=== PATIENT | female | born 1940 | race African-American/Black ===

== ENCOUNTER 2016-11-29 23:40 | Inpatient (IN) | payer OTHER ==
--- NOTE | ~2016-11-29 | OP ---
Record Of Operation [facility] [id number] [address] NAME: HUMERA GARCÍA : 40 STATUS : ADM IN [facility]#: [id number] AGE: 76 ADM/REG DATE : 11/30/16 MR#: [id number] REPORT SERV DATE: 12/04/16 DICTATED BY: EDELMIRA YUNG DATE: 12/04/16 REPORT STATUS : Draft TRANSCRIBED BY: MODL DATE: 12/04/16 DATE OF PROCEDURE: 12/04/2016 PREOPERATIVE DIAGNOSIS: History of melena. PROCEDURE: Panendoscopy. POSTOPERATIVE DIAGNOSIS: Normal panendoscopy. PREMEDICATION: Diprivan. PROCEDURE IN DETAIL: The scope was inserted without difficulty. The esophagus, stomach, duodenal bulb, and descending duodenum appeared normal. The ampulla was not seen, but there was bile in the area. Retroflexed view of the GE junction showed no other lesions. There was no evidence of active bleeding or old blood present. IMPRESSION: Normal panendoscopy. HARSHAD/PATITO Edelmira Yung M.D. / [id number] CC: MD Jose Choudhary M.D.
--- NOTE | ~2016-11-29 | DS ---
Discharge Summary [place] [id number] [facility] [place]. [address] NAME: HUMERA GARCÍA : 40 STATUS : DIS IN PAT#: [id number] AGE: 76 ADM/REG DATE : 11/30/16 MR#: [id number] REPORT SERV DATE: 12/11/16 DICTATED BY: QAMAR BERKOWITZ DATE: 12/10/16 REPORT STATUS : Draft TRANSCRIBED BY: MODL DATE: 12/10/16 ADMISSION DATE: 11/30/2016 DISCHARGE DATE: 12/10/2016 This dictation is an addition to discharge summary dictated by Dr. Baumann on 12/09/2016. The patient initially scheduled to be discharged on 12/08/2016, however, for some reason, the patient was not being able to discharge. The patient is hemodynamically stable as of today, 12/10/2016 and will be discharged home with home health. All other information remains the same. Of note, this dictation is an addition to work #[id number]. Greater than 30 minutes was spent on planning discharge and coordinating discharge, discussion with Case Management and nurse, chart review, medication reconciliation, writing of prescription. SHAMEKA/PATITO Qamar Berkowitz MD / [id number] CC: MD Jose Oneal M.D.
--- NOTE | ~2016-11-29 | IDS ---
Interim Discharge Summary [facility] [address] [place]. [address] NAME: HUMERA GARCÍA : 40 STATUS : ADM IN PAT#: [id number] AGE: 76 ADM/REG DATE : 11/30/16 MR#: [id number] REPORT SERV DATE: 12/01/16 DICTATED BY: SLIM VASQUEZ IV DATE: 12/01/16 REPORT STATUS : Draft TRANSCRIBED BY: PATITO DATE: 12/01/16 ADMISSION DATE: 11/30/2016 DISCHARGE DATE: DATE OF TRANSFER TO THE FLOOR: 12/01/2016. ADMITTING DIAGNOSES: 1. Gastrointestinal bleed, source still not clear, with no scope performed at this time. 2. History of deep vein thrombosis with reported recent clot though ultrasound of the lower extremities on 10/12/2016 reported as negative. 3. Paroxysmal atrial fibrillation. 4. Rheumatoid arthritis. 5. Hypertension. 6. Reflux disease. 7. Electrolyte abnormalities, being corrected. CONSULTANTS: Edward Marcial M.D., of GI who saw the patient on 11/30/2016, has not seen the patient yet today, with no scheduled scope at this time. PROCEDURES: The patient has had no procedure yet, has received 3 units of FFP for an elevated INR and 3 units of packed red blood cells with hemoglobin and hematocrit stable, hemoglobin now at 7.8. CURRENT MEDICATIONS: The patient is on Neurontin 600 mg twice a day, Plaquenil 200 mg twice a day, Protonix drip, Solu-Cortef 50 mg q.8 hours, and Lipitor 10 mg daily. HOSPITAL COURSE: The patient was admitted to the ICU on the early childhood education instructor of 11/30/[address] Marcial was consulted who had seen the patient in the past and scoped finding peptic ulcer disease. No scope time has yet been scheduled. The patient was supratherapeutic on her INR, Coumadin has been held, and the patient had correction with 3 units of FFP making me question the initial value. She reportedly had Coumadin started a week ago for recurrent DVT. However, in the system, ultrasounds of her lower extremities on the 11/12/2016 were negative for clot. I will clarify Dr. Jose Barnes the reason for re- initiation. I called him today; however, I just got his voicemail, so I left a message for him to call the hospital. She was placed on stress-dose steroids with outpatient use of prednisone, and I have began to taper the dose today as she has been hemodynamically stable. She had some electrolyte abnormalities which are being corrected. It was felt she was stable for transfer to the floor. We asked the Hospital Service to assume primary care. We will notify Dr. Marcial of the transfer. ANDERSON/PATITO Slim Vasquez IV, M.D. Interim Discharge Summary [address] [address] NAME: HUMERA GARCÍA : 40 STATUS : ADM IN PAT#: [id number] AGE: 76 ADM/REG DATE : 11/30/16 MR#: [id number] REPORT SERV DATE: 12/01/16 DICTATED BY: SLIM VASQUEZ IV DATE: 12/01/16 REPORT STATUS : Draft TRANSCRIBED BY: PATITO DATE: 12/01/16 / [id number]
--- NOTE | ~2016-11-29 | HP ---
History And Physical [place] [address] [place]. [address] NAME: HUMERA GARCÍA : 40 STATUS : ADM IN [facility]#: [id number] AGE: 76 ADM/REG DATE : 11/30/16 MR#: [id number] REPORT SERV DATE: 11/30/16 DICTATED BY: BÁRBARA DELONG DATE: 11/30/16 REPORT STATUS : Draft TRANSCRIBED BY: MODWen DATE: 11/30/16 DATE OF ADMISSION: 11/30/2016 HISTORY OF PRESENT ILLNESS: This is a 76-year-old patient I was asked to admit from the ER after she presented there with two to three days of dark stools associated with weakness, but no syncope. The patient also has been complaining of some epigastric pain. It appears that the patient has had previous history of DVT in 2010, and she was placed on Coumadin then and actually did have a GI bleed at that time and was seen by Dr. Marcial. For a time, she was taken off Coumadin and then was found to have recurrent DVTs in the lower extremities less than two weeks ago and was started back on Coumadin again and now comes in and with an upper GI bleed. The patient has had no fevers, diarrhea, productive cough at home. ALLERGIES: SHE IS ALLERGIC TO CODEINE, SULFAMETHOXAZOLE, TRIMETHOPRIM. MEDICATIONS: Her medications at home are aspirin 162 mg daily, Lipitor 10 mg daily, Cardizem 120 mg p.o. daily, gabapentin 600 mg twice a day, Plaquenil 200 mg once a day, Klor-Con 20 mEq twice a day, Deltasone 5 mg once a day, trazodone 100 mg at bedtime, Coumadin 5 mg daily. PAST MEDICAL HISTORY: Significant for rheumatoid arthritis, atrial fibrillation, paroxysmal atrial fibrillation, avascular necrosis of the right hip, right hip arthroplasty in 2001, gastroesophageal reflux disease, lupus, systemic sclerosis, DVT in 2010, peptic ulcer disease, acute blood loss anemia, hypertension, status post hysterectomy, pericarditis, C- section x3, back surgery, temporal artery biopsy, E. coli bacteremia. She has had a colonoscopy that shows multiple diverticuli. SOCIAL HISTORY: She is a retired nurse. She has five children. She is . Does not smoke or drink. FAMILY HISTORY: Significant for hypertension, rheumatoid arthritis in her mother. She has a son and a grandson with blood clots. REVIEW OF SYSTEMS: A 12-point review of systems was done and is as per history of present illness. PHYSICAL EXAMINATION: VITAL SIGNS: Her blood pressure is 109/54, heart rate is 103 sinus tach, temperature 99.2, respiratory rate 24, room air sat 97%. GENERAL: The patient is alert and awake, in no apparent distress. SKIN: Warm and dry. HEENT: Head is atraumatic and normocephalic. Pupils are equal, round, and reactive to light and accommodation. Extraocular eye movements are intact. Sclerae anicteric. Conjunctivae pale. Nasal mucosa is within normal limits. Oral mucosa is moist. Tongue is midline. NECK: Supple without JVD, lymphadenopathy, or thyromegaly. LUNGS: Diminished at the bases without any wheezing. History And Physical [address] [address] NAME: HUMERA GARCÍA : 40 STATUS : ADM IN [facility]#: [id number] AGE: 76 ADM/REG DATE : 11/30/16 MR#: [id number] REPORT SERV DATE: 11/30/16 DICTATED BY: BÁRBARA DELONG DATE: 11/30/16 REPORT STATUS : Draft TRANSCRIBED BY: PATITO DATE: 11/30/16 CARDIAC: Reveals a regular rate and rhythm with no significant murmurs. BREASTS: Symmetrical without masses. ABDOMEN: Obese, has some epigastric tenderness. No organosplenomegaly. Well-healed surgical scars are present. Bowel sounds are present, but diminished. A wrecked Garcia is in place. RECTAL: Deferred. EXTREMITIES: Without cyanosis, clubbing, only trace edema. NEUROLOGIC: Cranial nerves II through XI are grossly intact. Motor and sensory are intact. LABORATORY DATA: White cell count 10, hemoglobin 4.6, hematocrit 14, platelet count 147,000. INR greater than 15. Sodium 142, potassium 4.1, chloride 109, bicarb 23, BUN 35, creatinine 0.87, blood sugar 114. Troponin less than 0.02. BNP 32.9. EKG shows a normal sinus rhythm without any ST segment elevations or depressions. She has had an echo done on actually 11/12/2016 showed an ejection fraction of 55% to 60%. Mild diastolic dysfunction. Normal right ventricular chamber size and function and mild TR. DATA: Chest x-ray shows mild pulmonary vascular congestion. ASSESSMENT AND PLAN: This is a 76-year-old patient with, 1. Gastrointestinal bleed after being put on Coumadin for recurrent deep venous thrombosis. Serial hemoglobin and hematocrits will be done. The patient will be transfused 2 units and given fresh frozen plasma and vitamin K to reverse the effects of Coumadin. If the patient is not a candidate for anticoagulation, perhaps a Samantha filter will need to be considered. Blood pressure is stable, but will hold blood pressure medications at this time since she has a slightly lower blood pressure and has a gastrointestinal bleed. 2. Known rheumatoid arthritis, systemic sclerosis, and lupus, on low-dose steroids and Plaquenil. This process appears to be stable. 3. Atrial fibrillation. She currently is in sinus rhythm. The patient will be started on a Protonix drip after Dr. Marcial, Gastroenterology, has been consulted and notified. The patient will be kept n.p.o. except for medications. The patient is in guarded condition. /MODL Bárbara Delong M.D. / [id number] CC: Bing Layton M.D.
--- NOTE | ~2016-11-29 | CN ---
Consultation Report [facility] [place]. [address] NAME: HUMERA GARCÍA : 40 STATUS : ADM IN PAT#: [id number] AGE: 76 ADM/REG DATE : 11/30/16 MR#: [id number] REPORT SERV DATE: 11/30/16 DICTATED BY: EDELMIRA YUNG DATE: 11/30/16 REPORT STATUS : Draft TRANSCRIBED BY: MODL DATE: 11/30/16 CONSULT DATE OF CONSULTATION: 11/30/2016 LOCATION: [facility] bed 4. I am asked to see this lady with melena. This 76-year-old lady is known to me. She had an episode of GI bleeding about 6 years ago, at that time, panendoscopy showed an ulcer and colonoscopy showed diverticuli. She has numerous medical problems including deep venous thrombosis, pulmonary fibrosis, lupus, rheumatoid arthritis, and a history of atrial fibrillation. She developed weakness and fatigue about 24 hours ago and presented for evaluation. She has had melenic stool. She has had complaints of dyspepsia and nausea but denies any vomiting. She denies lower abdominal cramps. She currently denies chest pain or shortness of breath. REVIEW OF SYSTEMS: Otherwise negative. MEDICATIONS: Include aspirin and Coumadin. PHYSICAL EXAMINATION: GENERAL: Shows an alert lady in no acute distress. Blood pressure systolic less than 100, heart rate is about 100. HEAD, EYES, EARS, NOSE, AND THROAT: Grossly normal. NECK: Supple. CHEST: Clear. CARDIAC: Rapid rhythm without rubs or murmurs. ABDOMEN: Soft and nontender. Bowel sounds normal. No palpable mass. DATA: Initial workup showed positive Hemoccult. Hemoglobin was 4.6. Platelet count 147,000. BUN 35, creatinine 0.8. INR was noted to be greater than 15. IMPRESSION: 1. History of melena. 2. Anemia. 3. Positive Hemoccult. Consultation Report [place] [address] [place]. [address] NAME: HUMERA GARCÍA : 40 STATUS : ADM IN PAT#: [id number] AGE: 76 ADM/REG DATE : 11/30/16 MR#: [id number] REPORT SERV DATE: 11/30/16 DICTATED BY: EDELMIRA YUNG DATE: 11/30/16 REPORT STATUS : Draft TRANSCRIBED BY: PATITO DATE: 11/30/16 PLAN: Suspect upper GI bleeding. She is being transfused at the current time. We will follow and when hemodynamically stable, we will proceed with panendoscopy as next test. She is also being treated with IV Protonix. Thank you for allowing me to see this lady. HARSHAD/PATITO Edelmira Yung M.D. / [id number] CC: Bing Layton M.D.
--- NOTE | ~2016-11-29 | DS ---
Discharge Summary [place] [id number] [facility] [place]. [address] NAME: HUMERA GARCÍA : 40 STATUS : ADM IN [facility]#: [id number] AGE: 76 ADM/REG DATE : 11/30/16 MR#: [id number] REPORT SERV DATE: 12/09/16 DICTATED BY: GEORGES GOFF DATE: 12/08/16 REPORT STATUS : Draft TRANSCRIBED BY: MODL DATE: 12/08/16 ADMISSION DATE: 11/30/2016 DISCHARGE DATE: 12/08/2016 PROCEDURES DONE: 1. On 11/29/2016 chest x-ray: Mild bibasilar atelectasis. Otherwise, no acute cardiopulmonary abnormality. 2. On 12/02/2016 chest x-ray: Mild vascular congestion similar to previous study. 3. On 12/05/2016 CTA of the chest, nonobstructing acute pulmonary embolus right upper lobe, and subsegmental pulmonary artery and right lower lobe segmental pulmonary artery. Cardiomegaly. Subsegmental atelectasis, left lung base and small bilateral pleural effusions. Status post cholecystectomy. Predictive moderate stenosis of celiac artery, SMA and base is moderately enlarged. CONSULTATATIONS: 1. Edward Marcial M.D. for GI. 2. Morales Trinidad M.D. for Cardiology. REASON FOR ADMISSION: GI bleed. HISTORY OF PRESENT ILLNESS: A 76-year-old black female with past medical history of atrial fibrillation on Coumadin, history of DVT, avascular necrosis of the right hip, right hip arthroplasty, GERD, lupus, DVT in 2010, peptic ulcer disease, hypertension, presenting with dark stools x3 days. The patient was admitted in the Intensive Care Unit due to the severe acute blood loss of the patient. The patient was noted to have a hemoglobin of 4.6 at the time of presentation. The patient was noted to have INR greater than 15. The patient was then given FFP as well as blood which brought the patient's hemoglobin's at 7.1. During the hospital stay, the patient underwent EGD on 12/03/2016 which shows a normal panendoscopy. At that point, the patient was subsequently started on Eliquis. However, the patient started developing chest pain on 12/05/2016. Cardiology was consulted. The patient was noted to have elevated troponin. CTA of the chest shows positive for right upper and right lower lobe PE. The patient was already started on Eliquis prior to having chest pain. The patient was started on Eliquis at 5 mg p.o. b.i.d. At this time, the patient's medical treatment have been okay from a cardiac standpoint. To continue her Eliquis and decrease the aspirin to 81 mg p.o. daily. In the meantime, the patient was only able to walk 30 feet during rehab. Currently, upper caser is trying to have the patient placed in rehab due to her decreased mobility. DISCHARGE DIAGNOSES: 1. Black stools secondary to acute blood loss secondary to gastrointestinal. 2. Acute blood loss secondary to gastrointestinal bleed with elevated INR. 3. Gastrointestinal bleed with elevated INR. 4. Chest pain secondary to acute pulmonary embolism with right upper lobe and right lower lobe. 5. Rheumatoid arthritis. 6. Chronic obstructive pulmonary disease. Discharge Summary [address] [address] NAME: HUMERA GARCÍA : 40 STATUS : ADM IN [facility]#: [id number] AGE: 76 ADM/REG DATE : 11/30/16 MR#: [id number] REPORT SERV DATE: 12/09/16 DICTATED BY: GEORGES GOFF. DATE: 12/08/16 REPORT STATUS : Draft TRANSCRIBED BY: PATITO DATE: 12/08/16 7. Urinary tract infections and Escherichia coli. 8. Hypertension. 9. History of deep venous thrombosis. 10.Atrial fibrillation. 11.Coronary artery disease. BRYSON/PATITO Georges Goff MD / [id number] CC: MD Jose Choudhary M.D.
--- NOTE | ~2016-11-29 | CN ---
Consultation Report [place] [address] [facility] [place]. [address] NAME: HUMERA GARCÍA : 40 STATUS : ADM IN [facility]#: [id number] AGE: 76 ADM/REG DATE : 11/30/16 MR#: [id number] REPORT SERV DATE: 12/08/16 DICTATED BY: DOMINIC DURAN DATE: 12/05/16 REPORT STATUS : Draft TRANSCRIBED BY: MODL DATE: 12/05/16 CARDIOLOGY CONSULTATION DATE OF CONSULTATION: PRIMARY IPHONE DEVELOPER: Dr. Denis. CHIEF COMPLAINT: GI bleed. REASON FOR CONSULTATION: Abnormal troponin. SOURCE: The patient and her chart. HISTORY OF PRESENT ILLNESS: Ms. García is a very pleasant 76-year-old black woman, poor historian with multiple medical problems, who was admitted on 11/30/2016 for GI bleed. She was "out of it" at that time and does not remember many details. Her INR was greater than 15 upon arrival. She reports that she had dark stools. She has had abdominal pain, but no nausea or vomiting. She has felt hot and cold and broken out in a sweat. She has had some shortness of breath. She has sharp right-sided chest pain, which is constant, but increased with deep breath and cough. She has not had any angina. She has had some palpitations, but no syncope. REVIEW OF SYSTEMS: All other systems are negative. ALLERGIES: INCLUDE CODEINE, SULFAMETHOXAZOLE, TRIMETHOPRIM. MEDICATIONS: Medications at home included aspirin, atorvastatin, Cardizem, gabapentin , Plaquenil, potassium, Deltasone, Desyrel, and Coumadin. CARDIAC RISK FACTORS: Included hypertension, cholesterol. Denies tobacco, diabetes, or family history. SOCIAL HISTORY: The patient lives in [place]. She is . She has three children, alive and well. She is retired. FAMILY HISTORY: Negative for coronary artery disease at young age. Mother at age 92 of myocardial infarction. Son has had DVTs. Father had congestive heart failure. PAST MEDICAL HISTORY: Significant for cholecystectomy; hysterectomy; two right hip replacement; rheumatoid arthritis; lupus; systemic sclerosis; atrial fibrillation, on Coumadin therapy; gastroesophageal reflux disease; DVT in 2010; hypertension; peptic ulcer disease with bleeding ulcer, five or six years ago. Consultation Report [place] [id number] [facility] [place]. [address] NAME: HUMERA GARCÍA : 40 STATUS : ADM IN PAT#: [id number] AGE: 76 ADM/REG DATE : 11/30/16 MR#: [id number] REPORT SERV DATE: 12/08/16 DICTATED BY: DOMINIC DURAN DATE: 12/05/16 REPORT STATUS : Draft TRANSCRIBED BY: PATITO DATE: 12/05/16 PHYSICAL EXAMINATION: GENERAL: She is a chronically ill-appearing elderly black female, in no acute distress. VITAL SIGNS: Blood pressure 123/59, pulse 82, temperature 98.6. HEENT: Sclerae anicteric. Lips without cyanosis. Carotids 2+ and symmetrical. No bruits. No JVD. No thyromegaly. LUNGS: Clear anteriorly. No use of accessory muscles. HEART: Regular rate and rhythm without murmur, gallop, or rub. ABDOMEN: Positive bowel sounds. Soft, nontender. Obese. EXTREMITIES: Pulses 2+ and symmetrical. No cyanosis, clubbing, or edema. BACK: No CVA tenderness. MUSCULOSKELETAL: Good tone. NEURO: Alert and oriented x3. IMAGING: EKG today reveals normal sinus rhythm, normal tracing. The echocardiogram from 11/12/2016, normal LV systolic function, LVEF of 55% to 60%, mild diastolic dysfunction, normal RV chamber size and systolic function, mild tricuspid regurgitation. LABORATORY EXAMINATION: INR on arrival was greater than 15, hemoglobin was 4.6. The white count now 8.5, hemoglobin 7.5, hematocrit 22.8, platelets 164,000. Sodium is 140, potassium 3.6, chloride 108, CO2 of 23, glucose 103, BUN 13, creatinine 0.77, magnesium 2.3, phosphorus 3.1, calcium 7.9. The CPK 38, MB 1.7, troponin I of 1.02. The chest x-ray, mild vascular congestion similar to previous study. Urine culture greater than 100,000 E. coli. IMPRESSION: 1. Small increased troponin probably due to non-cardiac illness with normal CPK and MB and normal EKG. 2. Normal left ventricular systolic function by echocardiogram 11/12/2016. 3. Status post gastrointestinal bleed with hemoglobin 4.6. 4. Coagulopathy with INR greater than 15 upon arrival. 5. Atypical pleuritic right chest pain, consider the possibility of pulmonary thromboembolism. 6. History of deep venous thrombosis. She was temporarily off anticoagulation, but has now been started on novel oral anticoagulants. 7. History of rheumatoid arthritis. 8. History of lupus and systemic sclerosis. 9. History of bleeding ulcer, five or six years ago. 10.Paroxysmal atrial fibrillation, on anticoagulation therapy. RECOMMENDATIONS: 1. I agree with transfusion. 2. Check D-dimer and CTA as per Muna Mcdonald NP, note. 3. Check serial cardiac enzymes and EKGs. 4. Not much else to add at this point. Consultation Report [address] [place]. [address] NAME: HUMERA GARCÍA : 40 STATUS : ADM IN [facility]#: [id number] AGE: 76 ADM/REG DATE : 11/30/16 MR#: [id number] REPORT SERV DATE: 12/08/16 DICTATED BY: DOMINIC DURAN DATE: 12/05/16 REPORT STATUS : Draft TRANSCRIBED BY: PATITO DATE: 12/05/16 JAMESON/PATITO Dominic Duran M.D. / [id number] CC: MD Jose Choudhary M.D.
[2016-11-29 23:40] LABS: BASOPHILS 0.1 %; BASOPHILS ABSOLUTE 0.01 10/3/uL (0.0-0.16); EOSINOPHILS 0.1 %; EOSINOPHILS ABSOLUTE 0.01 10/3/uL (0.0-0.53); IMMATURE GRANULOCYTES 0.4 %; IMMATURE GRANULOCYTES ABSOLUTE 0.04 10/3/uL (0.0-0.11); LYMPHOCYTES 17.2 %; LYMPHOCYTES ABSOLUTE 1.86 10/3/uL (0.67-4.30); MEAN CORPUS HGB CONC 32.9 g/dL (32.0-36.0); MEAN CORPUSCULAR HEMOGLOB 28.9 pg (26.0-34.0); MEAN CORPUSCULAR VOLUME 88.1 fL (80-100); MEAN PLATELET VOLUME 10.5 fL (9.2-13.0); MONOCYTES 7.6 %; MONOCYTES ABSOLUTE 0.82 10/3/uL (0.21-1.20); NEUTROPHILS 74.6 %; NEUTROPHILS ABSOLUTE 8.09 10/3/uL (2.02-8.40); RBC DISTRIBUTION WIDTH 14.1 % (12.0-16.0)
[~2016-11-29 23:40] MED LIST: "\\\"BP MED\\\"" PO; ACET500CAP PO; AMB10 PO; AMBIEN PO; ASAB PO; CARDCD120 PO; CARDCD180 PO; CARDCD240 PO; CARDIZEM PO; DIOVAN HCT160 MG/25 PO; FERROUS SULF325 M1 PO; HYDROCODONE PO; HYZAAR 100/25 T1 TAB PO; KLOR-CON M2020 MEQ PO; L40 PO; LIPITOR10 PO; NEUR300 PO; NEUR600 PO; P5 PO; PERCOCET1 TA4 PO; PLAQ200B PO; PREDNISONE PO; PRILOSEC40 MG PO; REG5 PO; TRAZ50 PO; TRIAMTERENE PO; VITAMIN D1000 UNI1 PO; Z5 PO
[2016-11-29 23:41] LABS: ER CBC TAT 0 Hrs 03 Mins; HEMOGLOBIN 4.6 g/dL (12.0-16.0); MANUAL DIFF NO %; PLATELET COUNT 147 10/3/uL (150-400); RED CELL COUNT 1.59 10/6/uL (4.0-5.6); WHITE BLOOD CELLS 10.8 10/3/uL (4.5-10.5)
[2016-11-29] MEDS ORDERED: C5 PO (23:43)
[2016-11-29] MEDS ORDERED: LIPITOR10 PO (23:44)
[2016-11-29] MEDS ORDERED: TRAZ100 PO (23:44)
[2016-11-29] MEDS ORDERED: NEUR600 PO (23:45)
[2016-11-29] MEDS ORDERED: P5 PO (23:45)
[2016-11-29] MEDS ORDERED: KLOR-CON M2020 MEQ PO (23:46)
[2016-11-29] MEDS ORDERED: CARDIZEM LA120 MG PO (23:49)
[2016-11-29] MEDS ORDERED: ASAB PO (23:50)
[2016-11-29] MEDS ORDERED: PLAQ200B PO (23:50)
[2016-11-30 00:02] LABS: INTERNATIONAL NORMAL RATI > 15.0 UNITS (-); PROTIME (NOT ORD) > 120.0 SEC (12.0-14.5)
[2016-11-30 00:04] LABS: CHLORIDE, SERUM 109 MMOL/L (96-112); CO2 (CARBON DIOXIDE) 23 MMOL/L (24-34); CREATININE 0.87 MG/DL (0.55-1.02); GFR AFRICAN AMERICAN 75 ML/MIN (>=60); GFR NON AFRICAN AMERICAN 65 ML/MIN (>=60); SGOT(AST) 34 U/L (5-40); SGPT(ALT) 33 U/L (5-65); SODIUM, SERUM 142 MMOL/L (135-148); TROPONIN I <0.02 NG/ML (<0.05)
[2016-11-30 00:05] LABS: A/G RATIO 0.9 (0.7-1.9); ALBUMIN 2.5 G/DL (3.5-5.0); ALKALINE PHOSPHATASE 46 U/L (45-117); BUN (BLOOD UREA NITROGEN) 35 MG/DL (6-23); CALCIUM, SERUM 7.6 MG/DL (8.5-10.4); GLOBULIN 2.9 G/DL (2.5-4.1); GLUCOSE, SERUM 114 MG/DL (60-99); POTASSIUM, SERUM 4.1 MMOL/L (3.5-5.3); TOTAL BILIRUBIN < 0.1 MG/DL (0-1.2); TOTAL PROTEIN 5.4 G/DL (6.0-8.5)
[2016-11-30 01:56] LABS: ASCORBIC ACID (UR NOT ORDER) NEG (NEG); BILIRUBIN, URINE NEGATIVE (NEG); ER URINALYSIS TAT 0 Hrs 00 Mins; KETONE, URINE NEGATIVE (NEG); LEUKOCYTE ESTERASE(NOT OR SMALL (NEG); NITRITE (URINE) POS (NEG); WBC (NOT ORDERED) (RFLEX) 13 (0-5)
[2016-11-30 08:05] LABS: BASOPHILS 0.1 %; BASOPHILS ABSOLUTE 0.01 10/3/uL (0.0-0.16); EOSINOPHILS 0.1 %; EOSINOPHILS ABSOLUTE 0.01 10/3/uL (0.0-0.53); HEMATOCRIT 14.3 % (36.0-48.0); HEMOGLOBIN 4.8 g/dL (12.0-16.0); IMMATURE GRANULOCYTES 0.3 %; IMMATURE GRANULOCYTES ABSOLUTE 0.03 10/3/uL (0.0-0.11); LYMPHOCYTES 10.3 %; LYMPHOCYTES ABSOLUTE 1.01 10/3/uL (0.67-4.30); MANUAL DIFF NO %; MEAN CORPUS HGB CONC 33.6 g/dL (32.0-36.0); MEAN CORPUSCULAR HEMOGLOB 27.9 pg (26.0-34.0); MEAN CORPUSCULAR VOLUME 83.1 fL (80-100); MONOCYTES 5.6 %; MONOCYTES ABSOLUTE 0.55 10/3/uL (0.21-1.20); NEUTROPHILS 83.6 %; NEUTROPHILS ABSOLUTE 8.17 10/3/uL (2.02-8.40); PLATELET COUNT 101 10/3/uL (150-400); RED CELL COUNT 1.72 10/6/uL (4.0-5.6); WHITE BLOOD CELLS 9.8 10/3/uL (4.5-10.5)
[2016-11-30 08:09] LABS: INTERNATIONAL NORMAL RATI 1.5 UNITS (-)
[2016-11-30 08:10] LABS: PROTIME (NOT ORD) 18.1 SEC (12.0-14.5)
[2016-11-30 08:28] LABS: CALCIUM, SERUM 7.6 MG/DL (8.5-10.4); CHLORIDE, SERUM 112 MMOL/L (96-112); CO2 (CARBON DIOXIDE) 23 MMOL/L (24-34); CREATININE 0.77 MG/DL (0.55-1.02); FREE T4 0.94 NG/DL (0.76-1.46); GFR AFRICAN AMERICAN 87 ML/MIN (>=60); GFR NON AFRICAN AMERICAN 75 ML/MIN (>=60); GLUCOSE, SERUM 93 MG/DL (60-99); PHOSPHORUS, SERUM 2.2 MG/DL (2.5-4.5); POTASSIUM, SERUM 3.7 MMOL/L (3.5-5.3); SODIUM, SERUM 144 MMOL/L (135-148)
[2016-11-30 08:29] LABS: BUN (BLOOD UREA NITROGEN) 25 MG/DL (6-23)
[2016-11-30 17:49] LABS: HEMATOCRIT 22.4 % (36.0-48.0); HEMOGLOBIN 7.6 g/dL (12.0-16.0)
[2016-11-30 17:56] LABS: INTERNATIONAL NORMAL RATI 1.4 UNITS (-); PROTIME (NOT ORD) 16.6 SEC (12.0-14.5)
[2016-11-30 21:52] LABS: BASOPHILS 0.1 %; BASOPHILS ABSOLUTE 0.01 10/3/uL (0.0-0.16); EOSINOPHILS 0 %; HEMATOCRIT 21.1 % (36.0-48.0); HEMOGLOBIN 7.2 g/dL (12.0-16.0); IMMATURE GRANULOCYTES 0.7 %; IMMATURE GRANULOCYTES ABSOLUTE 0.08 10/3/uL (0.0-0.11); LYMPHOCYTES 12.5 %; LYMPHOCYTES ABSOLUTE 1.38 10/3/uL (0.67-4.30); MEAN CORPUS HGB CONC 34.1 g/dL (32.0-36.0); MEAN CORPUSCULAR HEMOGLOB 28.1 pg (26.0-34.0); MEAN CORPUSCULAR VOLUME 82.4 fL (80-100); MONOCYTES 7.6 %; MONOCYTES ABSOLUTE 0.84 10/3/uL (0.21-1.20); NEUTROPHILS 79.1 %; NEUTROPHILS ABSOLUTE 8.69 10/3/uL (2.02-8.40); PLATELET COUNT 107 10/3/uL (150-400); RBC DISTRIBUTION WIDTH 16.1 % (12.0-16.0)
[2016-11-30 21:53] LABS: RED CELL COUNT 2.56 10/6/uL (4.0-5.6)
[2016-11-30 21:54] LABS: MANUAL DIFF NO %
[2016-11-30 22:04] LABS: BUN (BLOOD UREA NITROGEN) 18 MG/DL (6-23); CALCIUM, SERUM 7.7 MG/DL (8.5-10.4); CHLORIDE, SERUM 110 MMOL/L (96-112); CO2 (CARBON DIOXIDE) 24 MMOL/L (24-34); CREATININE 0.71 MG/DL (0.55-1.02); GFR AFRICAN AMERICAN 96 ML/MIN (>=60); GFR NON AFRICAN AMERICAN 83 ML/MIN (>=60); GLUCOSE, SERUM 113 MG/DL (60-99); POTASSIUM, SERUM 3.7 MMOL/L (3.5-5.3); SODIUM, SERUM 143 MMOL/L (135-148)
[2016-12-01 01:06] LABS: HEMOGLOBIN 7.1 g/dL (12.0-16.0)
[2016-12-01 01:09] LABS: HEMATOCRIT 20.8 % (36.0-48.0)
[2016-12-01 01:16] LABS: INTERNATIONAL NORMAL RATI 1.2 UNITS (-); PROTIME (NOT ORD) 15.4 SEC (12.0-14.5)
[2016-12-01 01:26] LABS: BUN (BLOOD UREA NITROGEN) 17 MG/DL (6-23); CALCIUM, SERUM 7.8 MG/DL (8.5-10.4); CHLORIDE, SERUM 111 MMOL/L (96-112); CO2 (CARBON DIOXIDE) 24 MMOL/L (24-34); CREATININE 0.74 MG/DL (0.55-1.02); GFR AFRICAN AMERICAN 91 ML/MIN (>=60); GFR NON AFRICAN AMERICAN 79 ML/MIN (>=60); GLUCOSE, SERUM 108 MG/DL (60-99); POTASSIUM, SERUM 4.1 MMOL/L (3.5-5.3); SODIUM, SERUM 142 MMOL/L (135-148)
[2016-12-01 06:13] LABS: HEMATOCRIT 21.6 % (36.0-48.0); HEMOGLOBIN 7.3 g/dL (12.0-16.0)
[2016-12-01 06:16] LABS: INTERNATIONAL NORMAL RATI 1.1 UNITS (-); PROTIME (NOT ORD) 14.4 SEC (12.0-14.5)
[2016-12-01 11:34] LABS: HEMATOCRIT 22.5 % (36.0-48.0); HEMOGLOBIN 7.8 g/dL (12.0-16.0)
[2016-12-01 11:42] LABS: INTERNATIONAL NORMAL RATI 1.2 UNITS (-); PROTIME (NOT ORD) 15.4 SEC (12.0-14.5)
[2016-12-01 19:58] LABS: HEMATOCRIT 22.2 % (36.0-48.0); HEMOGLOBIN 7.4 g/dL (12.0-16.0)
[2016-12-02 07:10] LABS: BASOPHILS 0.1 %; BASOPHILS ABSOLUTE 0.01 10/3/uL (0.0-0.16); EOSINOPHILS 0.1 %; EOSINOPHILS ABSOLUTE 0.01 10/3/uL (0.0-0.53); HEMATOCRIT 22.8 % (36.0-48.0); HEMOGLOBIN 7.6 g/dL (12.0-16.0); IMMATURE GRANULOCYTES 0.9 %; LYMPHOCYTES 14.5 %; LYMPHOCYTES ABSOLUTE 1.63 10/3/uL (0.67-4.30); MEAN CORPUS HGB CONC 33.3 g/dL (32.0-36.0); MEAN CORPUSCULAR HEMOGLOB 28.4 pg (26.0-34.0); MONOCYTES 9.1 %; MONOCYTES ABSOLUTE 1.02 10/3/uL (0.21-1.20); NEUTROPHILS 75.3 %; NEUTROPHILS ABSOLUTE 8.49 10/3/uL (2.02-8.40); RBC DISTRIBUTION WIDTH 16.3 % (12.0-16.0); RED CELL COUNT 2.68 10/6/uL (4.0-5.6); WHITE BLOOD CELLS 11.3 10/3/uL (4.5-10.5)
[2016-12-02 07:13] LABS: MANUAL DIFF NO %; MEAN CORPUSCULAR VOLUME 85.1 fL (80-100); PLATELET COUNT 141 10/3/uL (150-400)
[2016-12-02 07:24] LABS: ALBUMIN 2.8 G/DL (3.5-5.0); CALCIUM, SERUM 8.1 MG/DL (8.5-10.4); CHLORIDE, SERUM 110 MMOL/L (96-112); CO2 (CARBON DIOXIDE) 22 MMOL/L (24-34); CREATININE 0.68 MG/DL (0.55-1.02); GFR AFRICAN AMERICAN 98 ML/MIN (>=60); GFR NON AFRICAN AMERICAN 85 ML/MIN (>=60); GLUCOSE, SERUM 99 MG/DL (60-99); POTASSIUM, SERUM 3.8 MMOL/L (3.5-5.3); SODIUM, SERUM 140 MMOL/L (135-148)
[2016-12-02 07:25] LABS: BUN (BLOOD UREA NITROGEN) 13 MG/DL (6-23); PHOSPHORUS, SERUM 3.1 MG/DL (2.5-4.5)
[2016-12-02 13:32] LABS: HEMOGLOBIN 7.3 g/dL (12.0-16.0)
[2016-12-02 20:32] LABS: HEMOGLOBIN 7.2 g/dL (12.0-16.0)
[2016-12-03 05:13] LABS: BASOPHILS 0.1 %; BASOPHILS ABSOLUTE 0.01 10/3/uL (0.0-0.16); EOSINOPHILS 0.7 %; EOSINOPHILS ABSOLUTE 0.06 10/3/uL (0.0-0.53); HEMATOCRIT 21.8 % (36.0-48.0); HEMOGLOBIN 7.2 g/dL (12.0-16.0); IMMATURE GRANULOCYTES 1.1 %; MEAN CORPUSCULAR HEMOGLOB 28.6 pg (26.0-34.0); MEAN CORPUSCULAR VOLUME 86.5 fL (80-100); MEAN PLATELET VOLUME 11.6 fL (9.2-13.0); MONOCYTES 10.3 %; MONOCYTES ABSOLUTE 0.92 10/3/uL (0.21-1.20); NEUTROPHILS 68.8 %; NEUTROPHILS ABSOLUTE 6.15 10/3/uL (2.02-8.40); PLATELET COUNT 134 10/3/uL (150-400); RBC DISTRIBUTION WIDTH 16.3 % (12.0-16.0); RED CELL COUNT 2.52 10/6/uL (4.0-5.6); WHITE BLOOD CELLS 8.9 10/3/uL (4.5-10.5)
[2016-12-03 05:18] LABS: MANUAL DIFF NO %
[2016-12-03 05:28] LABS: PHOSPHORUS, SERUM 3.4 MG/DL (2.5-4.5)
[2016-12-03 12:09] LABS: HEMOGLOBIN 7.5 g/dL (12.0-16.0)
[2016-12-04 07:02] LABS: BASOPHILS 0 %; EOSINOPHILS 0.1 %; EOSINOPHILS ABSOLUTE 0.01 10/3/uL (0.0-0.53); HEMATOCRIT 22.9 % (36.0-48.0); HEMOGLOBIN 7.7 g/dL (12.0-16.0); IMMATURE GRANULOCYTES 0.5 %; IMMATURE GRANULOCYTES ABSOLUTE 0.05 10/3/uL (0.0-0.11); LYMPHOCYTES 8.9 %; LYMPHOCYTES ABSOLUTE 0.87 10/3/uL (0.67-4.30); MEAN CORPUS HGB CONC 33.6 g/dL (32.0-36.0); MEAN CORPUSCULAR HEMOGLOB 29.1 pg (26.0-34.0); MEAN CORPUSCULAR VOLUME 86.4 fL (80-100); MEAN PLATELET VOLUME 10.9 fL (9.2-13.0); MONOCYTES 9.5 %; MONOCYTES ABSOLUTE 0.93 10/3/uL (0.21-1.20); NEUTROPHILS ABSOLUTE 7.96 10/3/uL (2.02-8.40); PLATELET COUNT 139 10/3/uL (150-400); RBC DISTRIBUTION WIDTH 16.4 % (12.0-16.0); RED CELL COUNT 2.65 10/6/uL (4.0-5.6); WHITE BLOOD CELLS 9.8 10/3/uL (4.5-10.5)
[2016-12-04 07:08] LABS: MANUAL DIFF NO %
[2016-12-04 08:18] LABS: A/G RATIO 0.9 (0.7-1.9); ALBUMIN 2.7 G/DL (3.5-5.0); ALKALINE PHOSPHATASE 50 U/L (45-117); BUN (BLOOD UREA NITROGEN) 12 MG/DL (6-23); CHLORIDE, SERUM 110 MMOL/L (96-112); CO2 (CARBON DIOXIDE) 24 MMOL/L (24-34); GFR AFRICAN AMERICAN 98 ML/MIN (>=60); GFR NON AFRICAN AMERICAN 84 ML/MIN (>=60); GLUCOSE, SERUM 103 MG/DL (60-99); PHOSPHORUS, SERUM 3.2 MG/DL (2.5-4.5); POTASSIUM, SERUM 3.6 MMOL/L (3.5-5.3); SGOT(AST) 24 U/L (5-40); SGPT(ALT) 23 U/L (5-65); SODIUM, SERUM 142 MMOL/L (135-148); TOTAL PROTEIN 5.7 G/DL (6.0-8.5)
[2016-12-04 08:20] LABS: TOTAL BILIRUBIN 0.8 MG/DL (0-1.2)
[2016-12-05 06:35] LABS: BASOPHILS 0 %; EOSINOPHILS 0.1 %; EOSINOPHILS ABSOLUTE 0.01 10/3/uL (0.0-0.53); HEMATOCRIT 22.8 % (36.0-48.0); HEMOGLOBIN 7.5 g/dL (12.0-16.0); IMMATURE GRANULOCYTES 0.5 %; IMMATURE GRANULOCYTES ABSOLUTE 0.04 10/3/uL (0.0-0.11); LYMPHOCYTES 11.2 %; LYMPHOCYTES ABSOLUTE 0.95 10/3/uL (0.67-4.30); MEAN CORPUS HGB CONC 32.9 g/dL (32.0-36.0); MEAN CORPUSCULAR HEMOGLOB 28.5 pg (26.0-34.0); MEAN CORPUSCULAR VOLUME 86.7 fL (80-100); MEAN PLATELET VOLUME 11.6 fL (9.2-13.0); MONOCYTES 9.3 %; MONOCYTES ABSOLUTE 0.79 10/3/uL (0.21-1.20); NEUTROPHILS 78.9 %; PLATELET COUNT 164 10/3/uL (150-400); RBC DISTRIBUTION WIDTH 16.4 % (12.0-16.0); RED CELL COUNT 2.63 10/6/uL (4.0-5.6); WHITE BLOOD CELLS 8.5 10/3/uL (4.5-10.5)
[2016-12-05 06:43] LABS: MANUAL DIFF NO %
[2016-12-05 06:47] LABS: BUN (BLOOD UREA NITROGEN) 13 MG/DL (6-23); CALCIUM, SERUM 7.9 MG/DL (8.5-10.4); CHLORIDE, SERUM 108 MMOL/L (96-112); CO2 (CARBON DIOXIDE) 23 MMOL/L (24-34); CREATININE 0.77 MG/DL (0.55-1.02); GFR AFRICAN AMERICAN 87 ML/MIN (>=60); GFR NON AFRICAN AMERICAN 75 ML/MIN (>=60); GLUCOSE, SERUM 103 MG/DL (60-99); PHOSPHORUS, SERUM 3.1 MG/DL (2.5-4.5); POTASSIUM, SERUM 3.6 MMOL/L (3.5-5.3); SODIUM, SERUM 140 MMOL/L (135-148)
[2016-12-05 13:08] LABS: TROPONIN I 1.02 NG/ML (<0.05)
[2016-12-05 15:13] LABS: CK-MB 1.7 NG/ML; CPK 38 U/L (0-200)
[2016-12-05 19:34] LABS: CPK 39 U/L (0-200)
[2016-12-05 19:35] LABS: CK-MB 1.7 NG/ML; TROPONIN I 1.01 NG/ML (<0.05)
[2016-12-05 22:19] LABS: BASOPHILS 0.1 %; BASOPHILS ABSOLUTE 0.01 10/3/uL (0.0-0.16); EOSINOPHILS 0.1 %; EOSINOPHILS ABSOLUTE 0.01 10/3/uL (0.0-0.53); HEMOGLOBIN 8.8 g/dL (12.0-16.0); IMMATURE GRANULOCYTES 0.5 %; IMMATURE GRANULOCYTES ABSOLUTE 0.06 10/3/uL (0.0-0.11); LYMPHOCYTES 10.1 %; LYMPHOCYTES ABSOLUTE 1.13 10/3/uL (0.67-4.30); MEAN CORPUS HGB CONC 33.8 g/dL (32.0-36.0); MEAN CORPUSCULAR HEMOGLOB 29.2 pg (26.0-34.0); MEAN CORPUSCULAR VOLUME 86.4 fL (80-100); MEAN PLATELET VOLUME 11.6 fL (9.2-13.0); MONOCYTES 9.2 %; MONOCYTES ABSOLUTE 1.03 10/3/uL (0.21-1.20); NEUTROPHILS ABSOLUTE 8.95 10/3/uL (2.02-8.40); PLATELET COUNT 160 10/3/uL (150-400); RBC DISTRIBUTION WIDTH 15.5 % (12.0-16.0); RED CELL COUNT 3.01 10/6/uL (4.0-5.6); WHITE BLOOD CELLS 11.2 10/3/uL (4.5-10.5)
[2016-12-05 22:22] LABS: MANUAL DIFF NO %
[2016-12-05 22:26] LABS: INTERNATIONAL NORMAL RATI 4.4 UNITS (-); PARTIAL THROMBO TIME 39.5 SEC (22.5-37.2)
[2016-12-05 22:27] LABS: PROTIME (NOT ORD) 41.6 SEC (12.0-14.5)
[2016-12-06 07:11] LABS: BASOPHILS 0 %; EOSINOPHILS 0.1 %; EOSINOPHILS ABSOLUTE 0.01 10/3/uL (0.0-0.53); IMMATURE GRANULOCYTES 0.4 %; IMMATURE GRANULOCYTES ABSOLUTE 0.04 10/3/uL (0.0-0.11); LYMPHOCYTES 7.5 %; MEAN CORPUS HGB CONC 33.3 g/dL (32.0-36.0); MEAN CORPUSCULAR HEMOGLOB 27.9 pg (26.0-34.0); MEAN PLATELET VOLUME 11.6 fL (9.2-13.0); MONOCYTES ABSOLUTE 0.85 10/3/uL (0.21-1.20); NEUTROPHILS ABSOLUTE 8.99 10/3/uL (2.02-8.40); PLATELET COUNT 176 10/3/uL (150-400); RBC DISTRIBUTION WIDTH 15.4 % (12.0-16.0); RED CELL COUNT 3.58 10/6/uL (4.0-5.6); WHITE BLOOD CELLS 10.7 10/3/uL (4.5-10.5)
[2016-12-06 07:14] LABS: MANUAL DIFF NO %; MEAN CORPUSCULAR VOLUME 83.8 fL (80-100)
[2016-12-06 07:51] LABS: A/G RATIO 0.8 (0.7-1.9); ALBUMIN 2.5 G/DL (3.5-5.0); ALKALINE PHOSPHATASE 51 U/L (45-117); BUN (BLOOD UREA NITROGEN) 15 MG/DL (6-23); CALCIUM, SERUM 7.5 MG/DL (8.5-10.4); CHLORIDE, SERUM 109 MMOL/L (96-112); CO2 (CARBON DIOXIDE) 23 MMOL/L (24-34); CPK 42 U/L (0-200); CREATININE 0.89 MG/DL (0.55-1.02); GFR AFRICAN AMERICAN 73 ML/MIN (>=60); GFR NON AFRICAN AMERICAN 63 ML/MIN (>=60); GLOBULIN 3.2 G/DL (2.5-4.1); GLUCOSE, SERUM 98 MG/DL (60-99); PHOSPHORUS, SERUM 3.4 MG/DL (2.5-4.5); POTASSIUM, SERUM 3.8 MMOL/L (3.5-5.3); SGOT(AST) 23 U/L (5-40); SGPT(ALT) 29 U/L (5-65); SODIUM, SERUM 143 MMOL/L (135-148); TOTAL PROTEIN 5.7 G/DL (6.0-8.5)
[2016-12-06 07:53] LABS: CK-MB 1.8 NG/ML; TOTAL BILIRUBIN 0.2 MG/DL (0-1.2); TROPONIN I 0.67 NG/ML (<0.05)
[2016-12-07 06:20] LABS: ASCORBIC ACID (UR NOT ORDER) NEG (NEG); BILIRUBIN, URINE NEGATIVE (NEG); KETONE, URINE NEGATIVE (NEG); LEUKOCYTE ESTERASE(NOT OR NEG (NEG); WBC (NOT ORDERED) (RFLEX) 3 (0-5)
[2016-12-07 06:43] LABS: BASOPHILS 0.1 %; BASOPHILS ABSOLUTE 0.01 10/3/uL (0.0-0.16); EOSINOPHILS 0.1 %; EOSINOPHILS ABSOLUTE 0.01 10/3/uL (0.0-0.53); HEMOGLOBIN 11.1 g/dL (12.0-16.0); IMMATURE GRANULOCYTES 0.4 %; IMMATURE GRANULOCYTES ABSOLUTE 0.05 10/3/uL (0.0-0.11); LYMPHOCYTES 7.3 %; LYMPHOCYTES ABSOLUTE 0.93 10/3/uL (0.67-4.30); MEAN CORPUS HGB CONC 33.2 g/dL (32.0-36.0); MEAN CORPUSCULAR HEMOGLOB 28.7 pg (26.0-34.0); MEAN CORPUSCULAR VOLUME 86.3 fL (80-100); MEAN PLATELET VOLUME 11.7 fL (9.2-13.0); MONOCYTES 6.4 %; MONOCYTES ABSOLUTE 0.81 10/3/uL (0.21-1.20); NEUTROPHILS 85.7 %; NEUTROPHILS ABSOLUTE 10.89 10/3/uL (2.02-8.40); PLATELET COUNT 215 10/3/uL (150-400); RBC DISTRIBUTION WIDTH 15.3 % (12.0-16.0); RED CELL COUNT 3.87 10/6/uL (4.0-5.6); WHITE BLOOD CELLS 12.7 10/3/uL (4.5-10.5)
[2016-12-07 06:50] LABS: HEMATOCRIT 33.4 % (36.0-48.0); MANUAL DIFF NO %
[2016-12-07 07:49] LABS: A/G RATIO 0.8 (0.7-1.9); ALBUMIN 2.6 G/DL (3.5-5.0); ALKALINE PHOSPHATASE 56 U/L (45-117); BUN (BLOOD UREA NITROGEN) 18 MG/DL (6-23); CALCIUM, SERUM 8.3 MG/DL (8.5-10.4); CHLORIDE, SERUM 107 MMOL/L (96-112); CO2 (CARBON DIOXIDE) 23 MMOL/L (24-34); CREATININE 0.83 MG/DL (0.55-1.02); GFR AFRICAN AMERICAN 79 ML/MIN (>=60); GFR NON AFRICAN AMERICAN 68 ML/MIN (>=60); GLOBULIN 3.3 G/DL (2.5-4.1); PHOSPHORUS, SERUM 2.8 MG/DL (2.5-4.5); POTASSIUM, SERUM 3.7 MMOL/L (3.5-5.3); SGOT(AST) 19 U/L (5-40); SGPT(ALT) 31 U/L (5-65); SODIUM, SERUM 140 MMOL/L (135-148); TOTAL BILIRUBIN 0.2 MG/DL (0-1.2); TOTAL PROTEIN 5.9 G/DL (6.0-8.5)
[2016-12-07 07:51] LABS: GLUCOSE, SERUM 120 MG/DL (60-99)
[2016-12-08 05:07] LABS: BASOPHILS 0 %; EOSINOPHILS 0.1 %; EOSINOPHILS ABSOLUTE 0.01 10/3/uL (0.0-0.53); HEMATOCRIT 32.2 % (36.0-48.0); HEMOGLOBIN 10.7 g/dL (12.0-16.0); IMMATURE GRANULOCYTES 0.5 %; IMMATURE GRANULOCYTES ABSOLUTE 0.06 10/3/uL (0.0-0.11); LYMPHOCYTES 5.9 %; LYMPHOCYTES ABSOLUTE 0.71 10/3/uL (0.67-4.30); MANUAL DIFF NO %; MEAN CORPUS HGB CONC 33.2 g/dL (32.0-36.0); MEAN CORPUSCULAR VOLUME 87.3 fL (80-100); MEAN PLATELET VOLUME 11.8 fL (9.2-13.0); MONOCYTES 7.1 %; MONOCYTES ABSOLUTE 0.85 10/3/uL (0.21-1.20); NEUTROPHILS 86.4 %; NEUTROPHILS ABSOLUTE 10.36 10/3/uL (2.02-8.40); PLATELET COUNT 200 10/3/uL (150-400); RBC DISTRIBUTION WIDTH 15.2 % (12.0-16.0); RED CELL COUNT 3.69 10/6/uL (4.0-5.6)
[2016-12-08 05:27] LABS: BUN (BLOOD UREA NITROGEN) 19 MG/DL (6-23); CALCIUM, SERUM 8.2 MG/DL (8.5-10.4); CHLORIDE, SERUM 108 MMOL/L (96-112); CO2 (CARBON DIOXIDE) 24 MMOL/L (24-34); CREATININE 0.82 MG/DL (0.55-1.02); GFR AFRICAN AMERICAN 81 ML/MIN (>=60); GFR NON AFRICAN AMERICAN 70 ML/MIN (>=60); GLUCOSE, SERUM 105 MG/DL (60-99); PHOSPHORUS, SERUM 3.3 MG/DL (2.5-4.5); POTASSIUM, SERUM 4.2 MMOL/L (3.5-5.3); SODIUM, SERUM 141 MMOL/L (135-148)
[2016-12-10 07:07] LABS: BASOPHILS 0.1 %; BASOPHILS ABSOLUTE 0.01 10/3/uL (0.0-0.16); EOSINOPHILS 0.1 %; EOSINOPHILS ABSOLUTE 0.01 10/3/uL (0.0-0.53); HEMOGLOBIN 10.7 g/dL (12.0-16.0); IMMATURE GRANULOCYTES 0.4 %; IMMATURE GRANULOCYTES ABSOLUTE 0.04 10/3/uL (0.0-0.11); LYMPHOCYTES 5.8 %; LYMPHOCYTES ABSOLUTE 0.65 10/3/uL (0.67-4.30); MEAN CORPUS HGB CONC 33.4 g/dL (32.0-36.0); MEAN CORPUSCULAR HEMOGLOB 29.1 pg (26.0-34.0); MEAN PLATELET VOLUME 11.6 fL (9.2-13.0); MONOCYTES 7.8 %; MONOCYTES ABSOLUTE 0.87 10/3/uL (0.21-1.20); NEUTROPHILS 85.8 %; NEUTROPHILS ABSOLUTE 9.58 10/3/uL (2.02-8.40); RBC DISTRIBUTION WIDTH 15.2 % (12.0-16.0); RED CELL COUNT 3.68 10/6/uL (4.0-5.6); WHITE BLOOD CELLS 11.2 10/3/uL (4.5-10.5)
[2016-12-10 07:10] LABS: MANUAL DIFF NO %; PLATELET COUNT 289 10/3/uL (150-400)
[2016-12-10 07:30] LABS: A/G RATIO 0.8 (0.7-1.9); ALBUMIN 2.2 G/DL (3.5-5.0); ALKALINE PHOSPHATASE 52 U/L (45-117); BUN (BLOOD UREA NITROGEN) 17 MG/DL (6-23); CALCIUM, SERUM 7.8 MG/DL (8.5-10.4); CHLORIDE, SERUM 107 MMOL/L (96-112); CO2 (CARBON DIOXIDE) 25 MMOL/L (24-34); CREATININE 0.64 MG/DL (0.55-1.02); GFR AFRICAN AMERICAN 100 ML/MIN (>=60); GFR NON AFRICAN AMERICAN 87 ML/MIN (>=60); GLOBULIN 2.9 G/DL (2.5-4.1); GLUCOSE, SERUM 100 MG/DL (60-99); POTASSIUM, SERUM 3.8 MMOL/L (3.5-5.3); SGOT(AST) 39 U/L (5-40); SGPT(ALT) 61 U/L (5-65); SODIUM, SERUM 141 MMOL/L (135-148); TOTAL BILIRUBIN 0.6 MG/DL (0-1.2); TOTAL PROTEIN 5.1 G/DL (6.0-8.5)
[2016-12-10] MEDS ORDERED: ELIQUIS 5 MG TAB5 MG PO (13:12)
[2016-12-10] MEDS ORDERED: IMDUR30 PO (13:13)
[2016-12-10] MEDS ORDERED: LOP25 PO (13:14)
[2016-12-10] MEDS ORDERED: LIPITOR80 MG PO (13:14)
[2016-12-10] MEDS ORDERED: PROTONIX PO (14:41)
[2016-12-10] MEDS ORDERED: PRIN5 PO (14:41)
[2016-12-18] MEDS ORDERED: K500 PO (16:58)
[2016-12-18] MEDS ORDERED: L20 PO (16:59)
[2016-12-18] MEDS ORDERED: PROTONIX PO (17:00)
[2016-12-18] MEDS ORDERED: P5 PO (17:02)
[2016-12-18] MEDS ORDERED: PRIN10 PO (17:02)
[2016-12-18] MEDS ORDERED: IMDUR30 PO (17:04)
[2016-12-18] MEDS ORDERED: PLAQ200B PO (17:04)
[2016-12-18] MEDS ORDERED: LIPITOR80 MG PO (17:05)
[2016-12-18] MEDS ORDERED: ASAB PO (17:05)
[2016-12-18] MEDS ORDERED: NEUR600 PO (17:05)
[2016-12-18] MEDS ORDERED: ELIQUIS 5 MG TAB5 MG PO (17:06)
[2016-12-18] MEDS ORDERED: COZ25 PO (17:06)
[2016-12-18] MEDS ORDERED: KLOR-CON M2020 MEQ PO (17:06)
== END 2016-12-10 18:51 | disposition home health service (06) | DRG 377 ==
LOC: ER 23:40 → MIC 11-30 00:48 → 2SO 12-01 20:04
PROVIDERS: Emergency Medicine; Hospitalist; Internal Medicine Critical Care Medicine; Internal Medicine Pulmonary Disease
PROC: 30233K1 Transfusion of Nonautologous Frozen Plasma into Peripheral Vein, Percutaneous Approach (ICD-10-PCS; principal; 2016-11-30)
PROC: 0DJ08ZZ Inspection of Upper Intestinal Tract, Via Natural or Artificial Opening Endoscopic (ICD-10-PCS; principal; 2016-11-30)
PROC: 30233K1 Transfusion of Nonautologous Frozen Plasma into Peripheral Vein, Percutaneous Approach (ICD-10-PCS; 2016-11-30)
DX: K92.2 Gastrointestinal hemorrhage, unspecified (principal); I26.99 Other pulmonary embolism without acute cor pulmonale; I48.92 Unspecified atrial flutter; M32.9 Systemic lupus erythematosus, unspecified; I77.4 Celiac artery compression syndrome; D68.32 Hemorrhagic disorder due to extrinsic circulating anticoagulants; D62 Acute posthemorrhagic anemia; N39.0 Urinary tract infection, site not specified; Z68.41 Body mass index [BMI] 40.0-44.9, adult; J84.10 Pulmonary fibrosis, unspecified; J44.9 Chronic obstructive pulmonary disease, unspecified; I48.0 Paroxysmal atrial fibrillation; M06.9 Rheumatoid arthritis, unspecified; I10 Essential (primary) hypertension; K21.9 Gastro-esophageal reflux disease without esophagitis; I25.10 Atherosclerotic heart disease of native coronary artery without angina pectoris; E66.01 Morbid (severe) obesity due to excess calories; B96.20 Unspecified Escherichia coli [E. coli] as the cause of diseases classified elsewhere; Z99.81 Dependence on supplemental oxygen; T45.515A Adverse effect of anticoagulants, initial encounter; Z82.49 Family history of ischemic heart disease and other diseases of the circulatory system; Z86.718 Personal history of other venous thrombosis and embolism; Z79.01 Long term (current) use of anticoagulants; Y92.009 Unspecified place in unspecified non-institutional (private) residence as the place of occurrence of the external cause; Z88.5 Allergy status to narcotic agent
CPT/HCPCS: 36415; 36430; 71010; 71275; 80048; 80053; 80069; 81001; 82550; 82553; 82962; 83690; 83735; 83880; 84100; 84439; 84443; 84484; 85014; 85018; 85025; 85379; 85610; 85730; 86850; 86900; 86901; 86920; 87077; 87086; 87186; 87641; 93005; 96374; 97110-GP; 97116-GP; 97161-GP; 97166-GO; 97535-GO; 99285; A9270-GY; C1894; C9113; J1720; J1940; J2405; J3430; P9016; P9059; Q9967

== ENCOUNTER 2016-12-13 13:14 | Emergency (ER) | payer OTHER ==
[2016-12-13 11:31] LABS: BASOPHILS 0 %; EOSINOPHILS 0.6 %; EOSINOPHILS ABSOLUTE 0.06 10/3/uL (0.0-0.53); ER CBC TAT 0 Hrs 08 Mins; HEMATOCRIT 33.7 % (36.0-48.0); HEMOGLOBIN 10.5 g/dL (12.0-16.0); IMMATURE GRANULOCYTES 0.4 %; IMMATURE GRANULOCYTES ABSOLUTE 0.04 10/3/uL (0.0-0.11); LYMPHOCYTES 12.1 %; LYMPHOCYTES ABSOLUTE 1.18 10/3/uL (0.67-4.30); MEAN CORPUS HGB CONC 31.2 g/dL (32.0-36.0); MEAN CORPUSCULAR HEMOGLOB 27.6 pg (26.0-34.0); MEAN CORPUSCULAR VOLUME 88.5 fL (80-100); MONOCYTES 11.9 %; MONOCYTES ABSOLUTE 1.16 10/3/uL (0.21-1.20); NEUTROPHILS ABSOLUTE 7.34 10/3/uL (2.02-8.40); PLATELET COUNT 229 10/3/uL (150-400); RBC DISTRIBUTION WIDTH 15.4 % (12.0-16.0); RED CELL COUNT 3.81 10/6/uL (4.0-5.6); WHITE BLOOD CELLS 9.8 10/3/uL (4.5-10.5)
[2016-12-13 11:33] LABS: MANUAL DIFF NO %
[2016-12-13 11:37] LABS: INTERNATIONAL NORMAL RATI 1.8 UNITS (-); PARTIAL THROMBO TIME 30.6 SEC (22.5-37.2); PROTIME (NOT ORD) 20.8 SEC (12.0-14.5)
[2016-12-13 11:48] LABS: A/G RATIO 0.8 (0.7-1.9); ALBUMIN 2.7 G/DL (3.5-5.0); ALKALINE PHOSPHATASE 64 U/L (45-117); BUN (BLOOD UREA NITROGEN) 10 MG/DL (6-23); CALCIUM, SERUM 8.2 MG/DL (8.5-10.4); CHLORIDE, SERUM 106 MMOL/L (96-112); CO2 (CARBON DIOXIDE) 29 MMOL/L (24-34); CREATININE 0.77 MG/DL (0.55-1.02); GFR AFRICAN AMERICAN 87 ML/MIN (>=60); GFR NON AFRICAN AMERICAN 75 ML/MIN (>=60); GLOBULIN 3.2 G/DL (2.5-4.1); GLUCOSE, SERUM 86 MG/DL (60-99); POTASSIUM, SERUM 4.2 MMOL/L (3.5-5.3); SGOT(AST) 33 U/L (5-40); SGPT(ALT) 67 U/L (5-65); SODIUM, SERUM 143 MMOL/L (135-148); TOTAL BILIRUBIN 0.7 MG/DL (0-1.2); TOTAL PROTEIN 5.9 G/DL (6.0-8.5)
[2016-12-13 11:51] LABS: TROPONIN I 0.05 NG/ML (<0.05)
[~2016-12-13 13:14] MED LIST changes: +C5 PO; +CARDIZEM LA120 MG PO; +ELIQUIS 5 MG TAB5 MG PO; +IMDUR30 PO; +LIPITOR80 MG PO; +LOP25 PO; +PRIN5 PO; +PROTONIX PO; +TRAZ100 PO
[2016-12-18] MEDS ORDERED: K500 PO (16:58)
[2016-12-18] MEDS ORDERED: L20 PO (16:59)
[2016-12-18] MEDS ORDERED: PROTONIX PO (17:00)
[2016-12-18] MEDS ORDERED: P5 PO (17:02)
[2016-12-18] MEDS ORDERED: PRIN10 PO (17:02)
[2016-12-18] MEDS ORDERED: PLAQ200B PO (17:04)
[2016-12-18] MEDS ORDERED: IMDUR30 PO (17:04)
[2016-12-18] MEDS ORDERED: ASAB PO (17:05)
[2016-12-18] MEDS ORDERED: NEUR600 PO (17:05)
[2016-12-18] MEDS ORDERED: LIPITOR80 MG PO (17:05)
[2016-12-18] MEDS ORDERED: KLOR-CON M2020 MEQ PO (17:06)
[2016-12-18] MEDS ORDERED: ELIQUIS 5 MG TAB5 MG PO (17:06)
[2016-12-18] MEDS ORDERED: COZ25 PO (17:06)
== END 2016-12-13 14:50 | disposition home or self-care (01) ==
LOC: ER 13:14
PROVIDERS: Emergency Medicine
DX: S80.821A Blister (nonthermal), right lower leg, initial encounter (principal); R60.9 Edema, unspecified; I10 Essential (primary) hypertension; I50.9 Heart failure, unspecified; Z88.2 Allergy status to sulfonamides; Z88.5 Allergy status to narcotic agent; X58.XXXA Exposure to other specified factors, initial encounter
CPT/HCPCS: 71010; 80053; 83880; 84484; 85025; 85610; 85730; 87070; 87205; 93005; 96374; 99285; A9270-GY

== ENCOUNTER 2016-12-18 17:16 | Inpatient (IN) | payer OTHER ==
--- NOTE | ~2016-12-18 | HP ---
History And Physical [place] [id number] [facility] [place]. [address] NAME: HUMERA GARCÍA : 40 STATUS : ADM Major PAT#: [id number] AGE: 76 ADM/REG DATE : 12/18/16 MR#: [id number] REPORT SERV DATE: 12/19/16 DICTATED BY: TODD GRAY DATE: 12/18/16 REPORT STATUS : Draft TRANSCRIBED BY: MODL DATE: 12/18/16 DATE OF ADMISSION: 12/18/2016 REASON FOR ADMISSION: Orthopnea and shortness of breath. HISTORY OF PRESENT ILLNESS: This is an unfortunate 76-year-old female with known history of obesity history as well as atrial fibrillation, was on chronic Coumadin therapy, recently switched over to Eliquis as she had two PEs after being held on her Coumadin. Recent admission with discharge in early 12/2016 for melena for which a panendoscopy was done a few days after initial presentation that was unremarkable by Dr. Marcial. Was in the ICU actually at that time with an elevated INR of 15 with FFP conversion. The patient has a known additional history of DVT in 2010. She has a known history of hypertension; avascular necrosis, right hip; known history of lupus and systemic sclerosis, on Plaquenil; peptic ulcer disease; known history of E. coli bacteremia in the past; diverticulosis; surgery; status post hysterectomy in the past; and suspected history of rheumatoid arthritis as well The patient after being discharged in early 12/2016 from having a GI bleed with development of newly diagnosed concomitant PEs, the patient was sent out with Home Health on Eliquis 5 p.o. b.i.d., the patient states she has been compliant. The patient states Home Health has been coming every single day. The swelling in her lower extremities more to the right compared to the left is increased with now purulent exudate from the anterior position of her right lower extremity ulcer. The patient has had positive orthopnea, positive PND, and positive nonproductive cough. She is on home oxygen. She appears to be on room air here and near over 96% on room air. The patient states she has had some pleuritic chest pain similar to the chest pain she had in the hospital last admission for which she was seen by Cardiology, thought to have type 2 demand ischemia at that time, noted to have a recent echocardiogram with normal LVEF in 11/2016, thought to have had a PE-associated typical pleuritic chest pain at that time. The patient states positive chills, no fevers. Positive nausea. No vomiting. No diarrhea. Positive chest pain as described. Positive shortness of breath as described and has some abdominal pain, unclear if it is postprandial. REVIEW OF SYSTEMS: Done, see HPI. Otherwise, negative. PAST MEDICAL HISTORY: See above. PAST SURGICAL HISTORY: See above. ALLERGIES: APPARENTLY BACTRIM AND CODEINE. History And Physical [address] [address] NAME: HUMERA GARCÍA : 40 STATUS : ADM Major PAT#: [id number] AGE: 76 ADM/REG DATE : 12/18/16 MR#: [id number] REPORT SERV DATE: 12/19/16 DICTATED BY: TODD GRAY DATE: 12/18/16 REPORT STATUS : Draft TRANSCRIBED BY: PATITO DATE: 12/18/16 FAMILY HISTORY: Hypertension in at least one parent. Additional family history includes VTE in her family as well. HOME MEDICATIONS: See MAR. Continue what is relevant. I gleaned from the last discharge MAR, the home MAR was not done just yet. 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 OBJECTIVE: VITAL SIGNS: Currently, 140 systolic from 130/59, 98.8 temp, 93 pulse, 18 respirations, and 100% on room air. GENERAL: In no acute distress. HEENT: PERRLA. No scleral icterus. CARDIOVASCULAR: Positive hepatojugular reflex. Otherwise, regular rate and rhythm. No murmur auscultated. RESPIRATORY: Decreased breath sounds bibasilarly, mild bibasilar crackles. ABDOMEN: Positive tenderness to palpation, more periumbilical, no rebound tenderness or peritoneal signs. EXTREMITIES: She does have about to 2+ to 3+ pitting edema, right lower extremity, compared to about 1+ pitting edema in her left lower extremity. Has a bandage of gauze around her anterior right lower extremity ulcer, subjectively has been ulcerating with purulent exudate. NEUROLOGIC: A and O x4/4. GCS of 15. PSYCH: Mildly anxious. LABORATORY DATA: White count 7.5 and hemoglobin 9.8 with 91,000 platelets. INR 1.6. Sodium 141, 3.8 potassium, 28 bicarb, 105 chloride, 0.81 creatinine, 7 BUN, and 98 sugar. BNP is elevated above 150. T-bilirubin 0.5. Troponin 0.03. EKG has normal sinus rhythm, no ischemic ST-T changes. Chest x-ray, underinspired. Otherwise, mild bibasilar alveolar infiltration. ASSESSMENT: 1. Positive orthopnea, positive subjective PND, positive hepatojugular reflex with elevated BNP suggestive of acute decompensated diastolic heart failure. 2. SIRS criteria given her heart rate is above 90 as well as a transient tachypnea. 3. Right greater than left lower extremity swelling with right lower extremity ulcerating exudative purulence. 4. History of gastrointestinal bleed. 5. History of recent pulmonary embolus x2 in late 11/2016, compliant with Eliquis. PLAN: We will go ahead and admit this patient under observation. We will get a CT of the right lower extremity to rule out for any osteo given the ulcerating region is purulent. Get CRP, sedimentation rate. Consider possible ankle brachial index for PAD. We will also place on Levaquin and Flagyl empirically. Likely has pleuritic chest pain, we will trend cardiac enzymes, get CT of abdomen and pelvis without contrast for abdominal pain. Also History And Physical [address] [address] NAME: HUMERA GARCÍA : 40 STATUS : ADM Major PAT#: [id number] AGE: 76 ADM/REG DATE : 12/18/16 MR#: [id number] REPORT SERV DATE: 12/19/16 DICTATED BY: TODD GRAY DATE: 12/18/16 REPORT STATUS : Draft TRANSCRIBED BY: MODL DATE: 12/18/16 send for wound Gram stain culture, place her on Bumex 1 IV t.i.d. for 3 days, then Bumex 1 IV b.i.d. See rest of my orders. All questions were answered, it took well over 60 minutes to do. Reference [facility]. WST/MODL Todd Gray DO / [id number] CC: MD Jose Bailey M.D.
--- NOTE | ~2016-12-18 | IDS ---
Interim Discharge Summary [facility] [address] [place]. [address] NAME: HUMERA GARCÍA : 40 STATUS : ADM Major PAT#: [id number] AGE: 76 ADM/REG DATE : 12/18/16 MR#: [id number] REPORT SERV DATE: 12/22/16 DICTATED BY: MARK GORDILLO DATE: 12/21/16 REPORT STATUS : Draft TRANSCRIBED BY: MODWen DATE: 12/21/16 ADMISSION DATE: 12/18/2016 DISCHARGE DATE: DIAGNOSES: 1. Right lower extremity cellulitis. 2. Acute on chronic diastolic heart failure. 3. History of pulmonary embolus, on Eliquis. 4. History of gastrointestinal bleed. 5. History of atrial fibrillation. 6. History of lupus, on long-term steroid use. 7. Systemic inflammatory response syndrome. 8. Acute on chronic kidney disease stage 2. 9. Anemia of chronic disease. 10.Generalized weakness. PT recommends rehab at discharge. HOSPITAL COURSE: The patient was admitted for further management of acute on chronic diastolic heart failure and lower extremity cellulitis. The patient was placed on vancomycin. Wound Care consulted. Initially, the patient was placed on IV Bumex. Once renal function bumped, IV diuretics were stopped and the patient was placed on home diuretic regimen. The patient was noted to have increased fever curve on 12/21/2016. Zosyn was added. Can consider consulting ID in the morning for antibiotic optimization. Further management per clinical course. SONJA/PATITO Guerrero Almanza MD / [id number] CC: MD SHAHZAD Bailey
--- NOTE | ~2016-12-18 | CN ---
Consultation Report [facility] [address] [place]. [address] NAME: HUMERA GARCÍA : 40 STATUS : ADM Major PAT#: [id number] AGE: 76 ADM/REG DATE : 12/18/16 MR#: [id number] REPORT SERV DATE: 12/22/16 DICTATED BY: RAMY STOKES DATE: 12/22/16 REPORT STATUS : Draft TRANSCRIBED BY: MODL DATE: 12/22/16 INFECTIOUS DISEASE CONSULT DATE OF CONSULTATION: REASON FOR CONSULT: Fever. HISTORY OF PRESENT ILLNESS: A 76-year-old black lady with history of rheumatoid arthritis or lupus, on low-dose prednisone and on hydroxychloroquine, pulmonary fibrosis, who was admitted reportedly for orthopnea, paroxysmal nocturnal dyspnea, dry cough, pleuritic chest pain, and leg edema. The patient cannot tell me her admission symptoms. She thinks she was confused at that time, she cannot remember. She was hospitalized in November with severe anemia, presumed due to GI bleeding. Her INR was more than 15. She has reportedly a history of DVT, on anticoagulation. She had an upper GI endoscopy during that admission, but there are no findings to explain GI bleeding. She also was given Rocephin for a positive urine culture for E. coli. Around 12/05/2016, she had some right chest pain and a CTA of the chest showed pulmonary emboli is on the right side. 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 On 12/13/2016, she had an ER visit here, where a right leg wound culture was done and it did not grow anything. She then had another right leg wound culture by her PCP, I presume, and that culture was negative. On admission, Dr. Tod Paul describes 2 to 3+ pitting edema in the right lower extremity, 1+ on the left with a bandage on the right lower extremity ulcer. There is no description of this ulcer and there is no description of cellulitis as far as I can tell. The ER notes just mentions a dressing over the leg. She was initially given Rocephin, then Levaquin and Flagyl. The lab work on admission showed WBC of 7, platelets 91, INR 1.6. Some form of wound culture was done again and that was negative. Antibiotics were changed to vancomycin on 12/19/2016. A procalcitonin was not elevated. A CT scan of the leg without contrast showed some posterior calf cellulitis, knee chondrocalcinosis, and a small effusion. A CT of the abdomen without contrast did not show any remarkable findings. The patient was kept on vancomycin, but yesterday she had a fever up to 101.3, so Zosyn was added. Today, she had one time temperature of 100.2, and ID consult was requested. Lab work today showed a creatinine 1.1 with a baseline of 0.8, but improved from 1.4 a couple of days ago. WBC is 10, hemoglobin 9, platelets 140. Urinalysis unremarkable for infection. Upon discussing with the patient, she complains of "I felt bad when I came in." She cannot describe what exactly does that mean except that she was weak and she thinks she was confused at that time. Now, she complains of some knee pains and weakness. She has chronic shortness of breath. Occasional cough. No sore throat. No nausea or vomiting. She had one bowel movement. No diarrhea, no abdominal pain. She has had dysuria for a week. She Consultation Report [address] [place]. [address] NAME: HUMERA GARCÍA : 40 STATUS : ADM Major PAT#: [id number] AGE: 76 ADM/REG DATE : 12/18/16 MR#: [id number] REPORT SERV DATE: 12/22/16 DICTATED BY: RAMY STOKES DATE: 12/22/16 REPORT STATUS : Draft TRANSCRIBED BY: MODWen DATE: 12/22/16 is edentulous. PAST MEDICAL HISTORY: As I mentioned above, reported history of paroxysmal atrial fibrillation, hypertension, DVT, pulmonary fibrosis, pericarditis. On the CT, I noticed that she might have an abdominal wall mesh. Reportedly, she had history of back surgery, right hip replacement for avascular necrosis, hysterectomy, cholecystectomy. ALLERGIES: SULFA SHE STATES IT CAUSED HER TO BREAK OUT. ALSO CODEINE. 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 FAMILY HISTORY: Positive for rheumatoid arthritis, hypertension, some clotting disorder. MEDICATIONS ON ADMISSION: Eliquis, aspirin, Lipitor, Keflex 500 mg p.o. q.12 hours, Lasix, gabapentin, Plaquenil, Imdur, lisinopril, losartan, Protonix, potassium, and prednisone 5 mg a day. PHYSICAL EXAMINATION: GENERAL: On exam, she is alert. HEENT: Edentulous. LUNGS: Clear to auscultation. No wheezing or crackling. HEART: Regular rhythm. No obvious murmurs. ABDOMEN: Obese, compressible, seems nontender. SKIN: No decubitus seen on her back. She has a clear bulla on the left boyd. She has a large area of epidermal disruption on the right boyd, but without any open wound. It looks like she had a very large bulla there that drained. There is no particular spreading redness beside maybe this area that initially formed a bulla. I do not see any other boils, wounds. EXTREMITIES: I can feel a good pulse in the left dorsalis pedis. I cannot feel one on the right. INVESTIGATIONS: Blood cultures were sent today. An arterial Doppler ultrasound of the right leg showed no evidence of stenosis. There is some asymmetry in the brachial pressures. ASSESSMENT AND PLAN: 1. Fever yesterday of unclear etiology. 2. Large right boyd ruptured bulla, but no obvious cellulitis at this time. It looks like she had multiple cultures about three of them done from "a wound" and they are all negative. I am not sure what and how was this done, what was cultured and how was this collected. She has been on antibiotics with Keflex in outpatient and Rocephin in ER, then Levaquin and Flagyl, then vancomycin, then finally yesterday vancomycin and Zosyn. 3. History of lupus and rheumatoid arthritis, according to her records, but only on low- dose prednisone as well as on hydroxychloroquine. Her corporate events director is Dr. Rosemary Linda. She is a poor historian, I do not see mentioning in the notes of any significant cellulitis. She has no obvious symptoms or exam findings today regarding Consultation Report [place] [address] [address] NAME: HUMERA GARCÍA : 40 STATUS : ADM Major PAT#: [id number] AGE: 76 ADM/REG DATE : 12/18/16 MR#: [id number] REPORT SERV DATE: 12/22/16 DICTATED BY: RAMY STOKES DATE: 12/22/16 REPORT STATUS : Draft TRANSCRIBED BY: PATITO DATE: 12/22/16 towards infection. I doubt that she had a significant right leg infection at least not that I can see at this time, so I would favor holding and/or stopping antibiotics and observing off antibiotics. We will check a procalcitonin, also follow up on sedimentation rate, CRP. Again, she has immune disease, so I have to consider that in the differential diagnosis as fever as well. The right hip does not show evidence of acute infection at this time. She has fair range of motion in the knees and hips with assistance although they are quite stiff. Also the left elbow appears to have some stiffness. DELON/MODWen Ramy Stokes M.D. / [id number] CC: MD KOLTON Bailey KARISTEN R
--- NOTE | ~2016-12-18 | DS ---
Discharge Summary [place] [address] [place]. [address] NAME: HUMERA GARCÍA : 40 STATUS : DIS IN PAT#: [id number] AGE: 76 ADM/REG DATE : 12/18/16 MR#: [id number] REPORT SERV DATE: 12/25/16 DICTATED BY: JR. TIM WILLIAM JOHN DATE: 12/25/16 REPORT STATUS : Draft TRANSCRIBED BY: PATITO DATE: 12/25/16 ADMISSION DATE: 12/18/2016 DISCHARGE DATE: 12/25/2016 ADDENDUM: The patient did not get financial accepted at the [facility] yesterday. Her discharge is anticipated today 12/25/2016. No acute issues or changes occurred overnight. For exam and laboratory, please see daily progress note. WJF/PATITO Michael Tim Jr, MD / [id number] CC: Michael Tim Jr, MD Karisten R Djernes
--- NOTE | ~2016-12-18 | DS ---
Discharge Summary [place] [address] [address] [place]. [address] NAME: HUMERA GARCÍA : 40 STATUS : ADM IN [facility]#: [id number] AGE: 76 ADM/REG DATE : 12/18/16 MR#: [id number] REPORT SERV DATE: 12/25/16 DICTATED BY: JR. TIM WILLIAM JOHN DATE: 12/24/16 REPORT STATUS : Draft TRANSCRIBED BY: MODWen DATE: 12/24/16 ADMISSION DATE: 12/18/2016 DISCHARGE DATE: DISCHARGE DIAGNOSES: Include: 1. Right lower extremity leg wound, initially thought to be cellulitic. 2. Generalized weakness. 3. Acute on chronic diastolic heart failure. 4. History of pulmonary embolism, in chronic phase. 5. History of coronary artery disease. 6. Atrial fibrillation. 7. History of GI bleed. 8. History of systemic lupus erythematosus. 9. Chronic kidney disease, stage II. 10.Morbid obesity, body mass index of 40.8. OPERATIONS, PROCEDURES, AND TREATMENTS: Include: 1. Chest x-ray done 12/18/2016, which showed no acute cardiopulmonary disease. 2. Arterial Doppler ultrasound of the right leg done, 12/19/2016, which showed no evidence of stenosis. 3. CT of the abdomen and pelvis done 12/19/2016 showed no bowel obstruction or bowel wall inflammation. There was some retained stool. There is an intact anterior abdominal wall hernia repair. No mass lesions adenopathy or acute inflammatory process was seen. 4. CT of the right lower extremity done 12/19 showed skin thickening with cellulitis in the posterior lateral aspect of the right lower leg without abscess. There was no evidence of myositis or osteomyelitis. Bones were osteoporotic without fracture. 5. Blood cultures x2 done 12/22/2016 were sterile. 6. MRSA and MSSA nasal swabs done 12/22/2016 were sterile. CONSULTING PHYSICIAN: Includes Dr. Perez of Infectious Disease. DISCHARGE MEDICATIONS: Include: 1. Apixaban 5 mg orally twice a day. 2. Aspirin 81 mg orally daily. 3. Lipitor 80 mg orally daily. 4. Famotidine 20 mg orally twice a day. 5. Lasix 20 mg orally daily. 6. Neurontin 300 mg orally twice a day. 7. Plaquenil 400 mg orally daily. 8. Sliding scale Humalog insulin level 1. 9. Imdur 30 mg orally daily. 10.Metoprolol 12.5 mg orally twice a day. 11.Prednisone 5 mg orally daily. 12.Tylenol 650 q.4h p.r.n. 13.Boost/Ensure shakes t.i.d. Discharge Summary [place] [address] [place]. [address] NAME: HUMERA GARCÍA : 40 STATUS : ADM IN PAT#: [id number] AGE: 76 ADM/REG DATE : 12/18/16 MR#: [id number] REPORT SERV DATE: 12/25/16 DICTATED BY: JR. TIM WILLIAM JOHN DATE: 12/24/16 REPORT STATUS : Draft TRANSCRIBED BY: PATITO DATE: 12/24/16 HOSPITAL COURSE: The patient was a 76-year-old female, presented to the emergency room on 12/18/2016 with shortness of breath. The patient had recently been discharged from the hospital for melena with a panendoscopy which was unremarkable at that time. The patient had a quite elevated INR. She also had a history of a deep vein thrombosis in 2010 and a history of lupus. The patient was discharged home, had Home Health. Developed swelling in her right leg, compared to the left with reported purulent discharge and a bullae. The patient went to the emergency room at some point. This lesion was lanced. She re-presented to the emergency room on 12/18/2016 with complaint of pleuritic type chest pain. The patient was seen and evaluated by Dr. Tod Paul. Please see his dictation for initial presenting history, physical, and presenting data. The patient was admitted to the Clinical Decision Unit. She was felt to have cellulitis and was therefore placed on vancomycin and Zosyn. She remained on these medications. I began seeing the patient on 12/22/2016. She continued to be febrile. I was concerned about drug fever or other sources as there seemed to be no evidence of infection to me. A procalcitonin was done, was 1.97. Also nasal swab showed no evidence of MRSA or MSSA. I asked Dr. Perez of Infectious Disease to see the patient. He agreed this was likely not the source of fevers. Her antibiotics were discontinued, and the patient had no further fever after the antibiotics were discontinued. Her white count has progressively declined since discontinuation of the antibiotics, and at discharge, her white blood count is 9.3. She has been afebrile for greater than 48 hours. Regarding the patient's generalized weakness, she was seen and evaluated by Physical therapy. She has become quite deconditioned and will be discharged to [facility] for rehabilitation/conditioning. As for the patient's acute on chronic diastolic heart failure, this is compensated. History of recurrent pulmonary emboli. She remained on Eliquis. There was no evidence of further bleeding. With regard to her lupus, her inflammatory markers were quite elevated with most recent C- reactive protein being 263 and the most recent sedimentation rate also elevated at 116. I discussed this with the patient's son. She likely will need further followup with Rheumatology. The remainder of the patient's health problems remained stable. DISCHARGE DIET: Will be regular with boost supplements. ACTIVITY: As tolerated. For discharge exam and laboratory, please see daily progress note. This discharge took 45 minutes for patient encounter, coordination of care, discussion with family, and documentation. Discharge Summary [address] [address] NAME: HUMERA GARCÍA : 40 STATUS : ADM IN [facility]#: [id number] AGE: 76 ADM/REG DATE : 12/18/16 MR#: [id number] REPORT SERV DATE: 12/25/16 DICTATED BY: JR. TIM WILLIAM JOHN DATE: 12/24/16 REPORT STATUS : Draft TRANSCRIBED BY: PATITO DATE: 12/24/16 CASE/PATITO Michael Tim Jr, MD / [id number] CC: Michael Tim Jr, MD Karisten R Djernes
[~2016-12-18 17:16] MED LIST changes: +COZ25 PO; +K500 PO; +L20 PO; +PRIN10 PO
[2016-12-18 17:42] LABS: BASOPHILS 0.1 %; BASOPHILS ABSOLUTE 0.01 10/3/uL (0.0-0.16); EOSINOPHILS 0.5 %; EOSINOPHILS ABSOLUTE 0.04 10/3/uL (0.0-0.53); HEMATOCRIT 30.5 % (36.0-48.0); HEMOGLOBIN 9.8 g/dL (12.0-16.0); IMMATURE GRANULOCYTES 0.3 %; IMMATURE GRANULOCYTES ABSOLUTE 0.02 10/3/uL (0.0-0.11); LYMPHOCYTES 12.2 %; LYMPHOCYTES ABSOLUTE 0.91 10/3/uL (0.67-4.30); MEAN CORPUS HGB CONC 32.1 g/dL (32.0-36.0); MEAN CORPUSCULAR VOLUME 87.1 fL (80-100); MEAN PLATELET VOLUME 11.8 fL (9.2-13.0); MONOCYTES 10.3 %; MONOCYTES ABSOLUTE 0.77 10/3/uL (0.21-1.20); NEUTROPHILS 76.6 %; NEUTROPHILS ABSOLUTE 5.71 10/3/uL (2.02-8.40); PLATELET COUNT 191 10/3/uL (150-400); RBC DISTRIBUTION WIDTH 15.2 % (12.0-16.0); WHITE BLOOD CELLS 7.5 10/3/uL (4.5-10.5)
[2016-12-18 17:43] LABS: MANUAL DIFF NO %
[2016-12-18 17:48] LABS: INTERNATIONAL NORMAL RATI 1.6 UNITS (-); PARTIAL THROMBO TIME 39.6 SEC (22.5-37.2); PROTIME (NOT ORD) 19.2 SEC (12.0-14.5)
[2016-12-18 17:58] LABS: ALKALINE PHOSPHATASE 61 U/L (45-117); BUN (BLOOD UREA NITROGEN) 7 MG/DL (6-23); CALCIUM, SERUM 8.6 MG/DL (8.5-10.4); CHEST PAIN PROFILE TAT 0 Hrs 22 Mins; CHLORIDE, SERUM 105 MMOL/L (96-112); CO2 (CARBON DIOXIDE) 28 MMOL/L (24-34); CREATININE 0.81 MG/DL (0.55-1.02); DIRECT BILIRUBIN 0.2 MG/DL (0.0-0.4); GFR AFRICAN AMERICAN 82 ML/MIN (>=60); GFR NON AFRICAN AMERICAN 71 ML/MIN (>=60); GLUCOSE, SERUM 98 MG/DL (60-99); INDIRECT BILIRUBIN(NOT ORDER) 0.3 MG/DL (0.1-0.9); POTASSIUM, SERUM 3.8 MMOL/L (3.5-5.3); SGOT(AST) 20 U/L (5-40); SGPT(ALT) 34 U/L (5-65); SODIUM, SERUM 141 MMOL/L (135-148); TOTAL BILIRUBIN 0.5 MG/DL (0-1.2); TOTAL PROTEIN 6.6 G/DL (6.0-8.5); TROPONIN I 0.03 NG/ML (<0.05)
[2016-12-18 18:10] LABS: LACTATE 0.7 MMOL/L (0.3-2.4)
[2016-12-18 19:08] LABS: ASCORBIC ACID (UR NOT ORDER) NEG (NEG); BILIRUBIN, URINE NEGATIVE (NEG); ER URINALYSIS TAT 0 Hrs 09 Mins; KETONE, URINE NEGATIVE (NEG); LEUKOCYTE ESTERASE(NOT OR NEG (NEG); WBC (NOT ORDERED) (RFLEX) 2 (0-5)
[2016-12-18 19:10] LABS: NITRITE (URINE) NEG (NEG)
[2016-12-18 19:32] LABS: B NATRIURETIC PEPTIDE (BNP) 186.2 PG/ML (< 100.0)
[2016-12-18 23:53] LABS: CPK 48 U/L (0-200); TROPONIN I 0.02 NG/ML (<0.05)
[2016-12-18 23:55] LABS: CK-MB 1.3 NG/ML
[2016-12-19 06:06] LABS: BASOPHILS 0.1 %; BASOPHILS ABSOLUTE 0.01 10/3/uL (0.0-0.16); EOSINOPHILS 1.1 %; EOSINOPHILS ABSOLUTE 0.08 10/3/uL (0.0-0.53); HEMOGLOBIN 10.4 g/dL (12.0-16.0); IMMATURE GRANULOCYTES 0.1 %; IMMATURE GRANULOCYTES ABSOLUTE 0.01 10/3/uL (0.0-0.11); LYMPHOCYTES 14.9 %; LYMPHOCYTES ABSOLUTE 1.08 10/3/uL (0.67-4.30); MEAN CORPUS HGB CONC 32.5 g/dL (32.0-36.0); MEAN CORPUSCULAR HEMOGLOB 28.8 pg (26.0-34.0); MEAN CORPUSCULAR VOLUME 88.6 fL (80-100); MEAN PLATELET VOLUME 11.7 fL (9.2-13.0); MONOCYTES 10.4 %; MONOCYTES ABSOLUTE 0.75 10/3/uL (0.21-1.20); NEUTROPHILS 73.4 %; NEUTROPHILS ABSOLUTE 5.31 10/3/uL (2.02-8.40); PLATELET COUNT 181 10/3/uL (150-400); RBC DISTRIBUTION WIDTH 15.1 % (12.0-16.0); RED CELL COUNT 3.61 10/6/uL (4.0-5.6); WHITE BLOOD CELLS 7.2 10/3/uL (4.5-10.5)
[2016-12-19 06:15] LABS: A/G RATIO 0.7 (0.7-1.9); ALBUMIN 2.9 G/DL (3.5-5.0); ALKALINE PHOSPHATASE 62 U/L (45-117); BUN (BLOOD UREA NITROGEN) 6 MG/DL (6-23); C-REACTIVE PROTEIN 46.2 MG/L (<8.0); CALCIUM, SERUM 8.9 MG/DL (8.5-10.4); CHLORIDE, SERUM 104 MMOL/L (96-112); CK-MB 1.4 NG/ML; CO2 (CARBON DIOXIDE) 28 MMOL/L (24-34); CPK 47 U/L (0-200); CREATININE 0.82 MG/DL (0.55-1.02); GFR AFRICAN AMERICAN 81 ML/MIN (>=60); GFR NON AFRICAN AMERICAN 70 ML/MIN (>=60); GLUCOSE, SERUM 88 MG/DL (60-99); MANUAL DIFF NO %; PHOSPHORUS, SERUM 3.3 MG/DL (2.5-4.5); POTASSIUM, SERUM 3.5 MMOL/L (3.5-5.3); SGOT(AST) 17 U/L (5-40); SGPT(ALT) 32 U/L (5-65); SODIUM, SERUM 141 MMOL/L (135-148); TOTAL BILIRUBIN 0.6 MG/DL (0-1.2); TOTAL PROTEIN 6.9 G/DL (6.0-8.5); TROPONIN I 0.03 NG/ML (<0.05)
[2016-12-19 06:48] LABS: PROCALCITONIN <0.05 ng/mL (<0.5)
[2016-12-19 07:01] LABS: SED RATE 63 MM/HR (0-20)
[2016-12-19 07:59] LABS: GLYCOHEMOGLOBIN (HbA1c) 5.6 % (4.7-6.1)
[2016-12-19 11:42] LABS: CK-MB 1.1 NG/ML; CPK 52 U/L (0-200); TROPONIN I 0.02 NG/ML (<0.05)
[2016-12-20 05:35] LABS: BUN (BLOOD UREA NITROGEN) 11 MG/DL (6-23); CALCIUM, SERUM 8.6 MG/DL (8.5-10.4); CHLORIDE, SERUM 100 MMOL/L (96-112); CO2 (CARBON DIOXIDE) 28 MMOL/L (24-34); CREATININE 1.34 MG/DL (0.55-1.02); GFR AFRICAN AMERICAN 44 ML/MIN (>=60); GFR NON AFRICAN AMERICAN 38 ML/MIN (>=60); GLUCOSE, SERUM 100 MG/DL (60-99); PHOSPHORUS, SERUM 3.6 MG/DL (2.5-4.5); SODIUM, SERUM 138 MMOL/L (135-148)
[2016-12-20 06:14] LABS: BASOPHILS 0.1 %; BASOPHILS ABSOLUTE 0.01 10/3/uL (0.0-0.16); EOSINOPHILS 0 %; HEMATOCRIT 29.7 % (36.0-48.0); HEMOGLOBIN 9.7 g/dL (12.0-16.0); IMMATURE GRANULOCYTES 0.1 %; IMMATURE GRANULOCYTES ABSOLUTE 0.01 10/3/uL (0.0-0.11); LYMPHOCYTES 10.3 %; LYMPHOCYTES ABSOLUTE 1.14 10/3/uL (0.67-4.30); MEAN CORPUS HGB CONC 32.7 g/dL (32.0-36.0); MEAN CORPUSCULAR HEMOGLOB 28.5 pg (26.0-34.0); MEAN CORPUSCULAR VOLUME 87.4 fL (80-100); MEAN PLATELET VOLUME 12.6 fL (9.2-13.0); MONOCYTES 12.6 %; NEUTROPHILS 76.9 %; NEUTROPHILS ABSOLUTE 8.55 10/3/uL (2.02-8.40); PLATELET COUNT 181 10/3/uL (150-400); RBC DISTRIBUTION WIDTH 15.3 % (12.0-16.0); WHITE BLOOD CELLS 11.1 10/3/uL (4.5-10.5)
[2016-12-20 06:15] LABS: MANUAL DIFF NO %
[2016-12-21 04:48] LABS: BASOPHILS 0 %; EOSINOPHILS 0.1 %; EOSINOPHILS ABSOLUTE 0.01 10/3/uL (0.0-0.53); HEMATOCRIT 28.4 % (36.0-48.0); HEMOGLOBIN 9.3 g/dL (12.0-16.0); IMMATURE GRANULOCYTES 0.2 %; IMMATURE GRANULOCYTES ABSOLUTE 0.02 10/3/uL (0.0-0.11); LYMPHOCYTES 10.8 %; LYMPHOCYTES ABSOLUTE 1.18 10/3/uL (0.67-4.30); MANUAL DIFF NO %; MEAN CORPUS HGB CONC 32.7 g/dL (32.0-36.0); MEAN CORPUSCULAR HEMOGLOB 28.4 pg (26.0-34.0); MEAN CORPUSCULAR VOLUME 86.9 fL (80-100); MEAN PLATELET VOLUME 11.7 fL (9.2-13.0); MONOCYTES 12.3 %; MONOCYTES ABSOLUTE 1.35 10/3/uL (0.21-1.20); NEUTROPHILS 76.6 %; NEUTROPHILS ABSOLUTE 8.38 10/3/uL (2.02-8.40); PLATELET COUNT 156 10/3/uL (150-400); RBC DISTRIBUTION WIDTH 15.2 % (12.0-16.0); RED CELL COUNT 3.27 10/6/uL (4.0-5.6); WHITE BLOOD CELLS 10.9 10/3/uL (4.5-10.5)
[2016-12-21 05:01] LABS: BUN (BLOOD UREA NITROGEN) 16 MG/DL (6-23); CALCIUM, SERUM 8.8 MG/DL (8.5-10.4); CHLORIDE, SERUM 100 MMOL/L (96-112); CO2 (CARBON DIOXIDE) 28 MMOL/L (24-34); CREATININE 1.26 MG/DL (0.55-1.02); GFR AFRICAN AMERICAN 48 ML/MIN (>=60); GFR NON AFRICAN AMERICAN 41 ML/MIN (>=60); GLUCOSE, SERUM 89 MG/DL (60-99); PHOSPHORUS, SERUM 2.7 MG/DL (2.5-4.5); POTASSIUM, SERUM 3.6 MMOL/L (3.5-5.3); SODIUM, SERUM 139 MMOL/L (135-148)
[2016-12-22 04:29] LABS: BASOPHILS 0 %; EOSINOPHILS 0.3 %; EOSINOPHILS ABSOLUTE 0.03 10/3/uL (0.0-0.53); HEMATOCRIT 28.1 % (36.0-48.0); HEMOGLOBIN 9.2 g/dL (12.0-16.0); IMMATURE GRANULOCYTES 0.2 %; IMMATURE GRANULOCYTES ABSOLUTE 0.02 10/3/uL (0.0-0.11); LYMPHOCYTES 7.7 %; LYMPHOCYTES ABSOLUTE 0.81 10/3/uL (0.67-4.30); MEAN CORPUS HGB CONC 32.7 g/dL (32.0-36.0); MEAN CORPUSCULAR HEMOGLOB 28.6 pg (26.0-34.0); MEAN CORPUSCULAR VOLUME 87.3 fL (80-100); MEAN PLATELET VOLUME 11.1 fL (9.2-13.0); MONOCYTES 10.1 %; MONOCYTES ABSOLUTE 1.06 10/3/uL (0.21-1.20); NEUTROPHILS 81.7 %; NEUTROPHILS ABSOLUTE 8.55 10/3/uL (2.02-8.40); PLATELET COUNT 140 10/3/uL (150-400); RBC DISTRIBUTION WIDTH 14.8 % (12.0-16.0); RED CELL COUNT 3.22 10/6/uL (4.0-5.6); WHITE BLOOD CELLS 10.5 10/3/uL (4.5-10.5)
[2016-12-22 04:33] LABS: MANUAL DIFF NO %
[2016-12-22 04:44] LABS: BUN (BLOOD UREA NITROGEN) 16 MG/DL (6-23); CALCIUM, SERUM 8.8 MG/DL (8.5-10.4); CHLORIDE, SERUM 105 MMOL/L (96-112); CO2 (CARBON DIOXIDE) 26 MMOL/L (24-34); GFR AFRICAN AMERICAN 56 ML/MIN (>=60); GFR NON AFRICAN AMERICAN 49 ML/MIN (>=60); GLUCOSE, SERUM 100 MG/DL (60-99); POTASSIUM, SERUM 3.8 MMOL/L (3.5-5.3); SODIUM, SERUM 139 MMOL/L (135-148)
[2016-12-22 14:25] LABS: ASCORBIC ACID (UR NOT ORDER) NEG (NEG); BILIRUBIN, URINE NEGATIVE (NEG); KETONE, URINE NEGATIVE (NEG); LEUKOCYTE ESTERASE(NOT OR NEG (NEG); WBC (NOT ORDERED) (RFLEX) 3 (0-5)
[2016-12-22 17:12] LABS: PROCALCITONIN 2.53 ng/mL (<0.5)
[2016-12-23 04:27] LABS: BASOPHILS 0.1 %; BASOPHILS ABSOLUTE 0.01 10/3/uL (0.0-0.16); EOSINOPHILS 0.3 %; EOSINOPHILS ABSOLUTE 0.03 10/3/uL (0.0-0.53); HEMATOCRIT 27.4 % (36.0-48.0); HEMOGLOBIN 9.1 g/dL (12.0-16.0); IMMATURE GRANULOCYTES 0.2 %; IMMATURE GRANULOCYTES ABSOLUTE 0.02 10/3/uL (0.0-0.11); LYMPHOCYTES ABSOLUTE 0.96 10/3/uL (0.67-4.30); MEAN CORPUS HGB CONC 33.2 g/dL (32.0-36.0); MEAN CORPUSCULAR HEMOGLOB 28.9 pg (26.0-34.0); MONOCYTES 13.1 %; MONOCYTES ABSOLUTE 1.26 10/3/uL (0.21-1.20); NEUTROPHILS 76.3 %; NEUTROPHILS ABSOLUTE 7.32 10/3/uL (2.02-8.40); PLATELET COUNT 163 10/3/uL (150-400); RBC DISTRIBUTION WIDTH 14.8 % (12.0-16.0); RED CELL COUNT 3.15 10/6/uL (4.0-5.6); WHITE BLOOD CELLS 9.6 10/3/uL (4.5-10.5)
[2016-12-23 04:28] LABS: MANUAL DIFF NO %
[2016-12-23 04:46] LABS: BUN (BLOOD UREA NITROGEN) 15 MG/DL (6-23); CALCIUM, SERUM 8.9 MG/DL (8.5-10.4); CHLORIDE, SERUM 104 MMOL/L (96-112); CO2 (CARBON DIOXIDE) 25 MMOL/L (24-34); CREATININE 0.96 MG/DL (0.55-1.02); GFR AFRICAN AMERICAN 67 ML/MIN (>=60); GFR NON AFRICAN AMERICAN 57 ML/MIN (>=60); GLUCOSE, SERUM 114 MG/DL (60-99); POTASSIUM, SERUM 3.8 MMOL/L (3.5-5.3); SODIUM, SERUM 139 MMOL/L (135-148)
[2016-12-23 05:18] LABS: SED RATE 116 MM/HR (0-20)
[2016-12-23 07:00] LABS: PROCALCITONIN 1.97 ng/mL (<0.5)
[2016-12-24 07:05] LABS: BASOPHILS 0.1 %; BASOPHILS ABSOLUTE 0.01 10/3/uL (0.0-0.16); EOSINOPHILS 0.6 %; EOSINOPHILS ABSOLUTE 0.06 10/3/uL (0.0-0.53); HEMATOCRIT 26.5 % (36.0-48.0); HEMOGLOBIN 8.6 g/dL (12.0-16.0); IMMATURE GRANULOCYTES 0.4 %; IMMATURE GRANULOCYTES ABSOLUTE 0.04 10/3/uL (0.0-0.11); LYMPHOCYTES 12.2 %; LYMPHOCYTES ABSOLUTE 1.13 10/3/uL (0.67-4.30); MANUAL DIFF NO %; MEAN CORPUS HGB CONC 32.5 g/dL (32.0-36.0); MEAN CORPUSCULAR HEMOGLOB 28.2 pg (26.0-34.0); MEAN CORPUSCULAR VOLUME 86.9 fL (80-100); MEAN PLATELET VOLUME 10.2 fL (9.2-13.0); MONOCYTES 11.1 %; MONOCYTES ABSOLUTE 1.03 10/3/uL (0.21-1.20); NEUTROPHILS 75.6 %; NEUTROPHILS ABSOLUTE 6.98 10/3/uL (2.02-8.40); PLATELET COUNT 185 10/3/uL (150-400); RBC DISTRIBUTION WIDTH 15.2 % (12.0-16.0); RED CELL COUNT 3.05 10/6/uL (4.0-5.6); WHITE BLOOD CELLS 9.3 10/3/uL (4.5-10.5)
== END 2016-12-25 16:52 | DRG 291 ==
LOC: ER 17:16 → CDU1 20:13 → CDU2 20:49 → 6NO 12-22 12:39
PROVIDERS: Emergency Medicine; Internal Medicine; Internal Medicine Infectious Disease
DX: I13.0 Hypertensive heart and chronic kidney disease with heart failure and stage 1 through stage 4 chronic kidney disease, or unspecified chronic kidney disease (principal); I50.33 Acute on chronic diastolic (congestive) heart failure; I27.82 Chronic pulmonary embolism; R65.10 Systemic inflammatory response syndrome (SIRS) of non-infectious origin without acute organ dysfunction; M32.9 Systemic lupus erythematosus, unspecified; I48.91 Unspecified atrial fibrillation; Z68.41 Body mass index [BMI] 40.0-44.9, adult; D63.8 Anemia in other chronic diseases classified elsewhere; N18.2 Chronic kidney disease, stage 2 (mild); E66.9 Obesity, unspecified; Z79.02 Long term (current) use of antithrombotics/antiplatelets; Z79.52 Long term (current) use of systemic steroids; Z88.1 Allergy status to other antibiotic agents; Z88.0 Allergy status to penicillin; Z86.711 Personal history of pulmonary embolism
CPT/HCPCS: 71010; 73700-RT; 74176; 80048; 80053; 80076; 80202; 81001; 82140; 82550; 82553; 82962; 83036; 83605; 83735; 83880; 84100; 84145; 84443; 84484; 85025; 85610; 85652; 85730; 86140; 87040; 87070; 87205; 87641; 93005; 93923; 96374; 97162-GP; 97164-GP; 97165-GO; 99285; A9270-GY; J1170; J1956; J2405; J2543; J3370